=== PATIENT | female | born 1970 | race Caucasian/White ===

== ENCOUNTER 2020-05-07 05:42 | Emergency (ER) | payer BC, SELFPAY ==
--- NOTE | ~2020-05-07 | US_ITS ---
EXAMINATION: US venous doppler [facility] DATE: 05/07/2020 07:35 INDICATION: Lower limb pain. TECHNIQUE: Grayscale ultrasound images without and with compression and Doppler ultrasound images of the bilateral lower extremity veins were obtained. COMPARISON: None. FINDINGS: The visualized portions of right common femoral vein, profunda (deep) femoral vein, femoral vein, pop liteal vein, peroneal veins, posterior tibial veins, and greater saphenous vein outflow are patent. The visualized portions of left common femoral vein, profunda femoral vein, femoral vein, popliteal v ein, peroneal veins, posterior tibial veins, and greater saphenous vein outflow are patent. IMPRESSION: 1. No deep venous thrombosis. Reviewed, dictated and finalized at location A.
[2020-05-07 05:44] VITALS: BP 138/60; PULSE 73; RESP 20; TEMP 36.8; O2SAT 100
--- NOTE | 2020-05-07 06:38 | ED.LOWEXIN ---
HPI - Extremity Injury (Lower) General Chief Complaint: Extremity Injury, Lower <Cami Rosario MD - Last Filed: 05/07/20 19:04> Stated Complaint: LEG PAIN <Cami Rosario MD - Last Filed: 05/07/20 19:04> Time Seen by Provider: 05/07/20 06:31 <Cami Rosario MD - Last Filed: 05/07/20 19:04> History of Present Illness HPI Narrative: Patient presents with 2 days of posterior calf pain. 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 She had no injury. She had no new exercise or activity. Pain started in the left leg and then went to the right leg. She gauges both as 8 out of 10. Pain is worse with walking. She took an ibuprofen for the pain at home. She has no history of blood clots or any in her family. She smokes cigarettes, but is not on control. She has not been sick otherwise. History of tubal ligation. <Cami Rosario MD - Last Filed: 05/07/20 19:04> Related Data Allergies/Adverse Reactions: Allergies Allergy/AdvReac Type Severity Reaction Status Date / Time No Known Allergies Allergy Mild Unverified 04/10/12 16:26 <Cami Rosario MD - Last Filed: 05/07/20 19:04> Review of Systems Review of Systems: Narrative: CONSTITUTIONAL: Denies fever, chills, or sweats. EYES: Denies visual changes, redness, or discharge. ENT: Denies rhinorrhea, congestion, sore throat, or otalgia. CARDIOVASCULAR: Denies chest pain, palpitations, or edema. RESPIRATORY: Denies cough or dyspnea. GASTROINTESTINAL: Denies abdominal pain, nausea, vomiting, or diarrhea. GENITOURINARY: Denies dysuria or hematuria. SKIN: Denies rash or itching. MUSCULOSKELETAL: Denies back pain, joint pain, bilateral lower leg myalgia. NEUROLOGIC: Denies headache, numbness, or weakness. PSYCHIATRIC: Denies anxiety or depression. <Cami Rosario MD - Last Filed: 05/07/20 19:04> [facility] Social History Social History: Social History (Updated 05/07/20 @ 06:40 by Cami Rosario MD) Smoking status: Current every day smoker Gender identity (if verbalized by the patient): Female <Cami Rosario MD - Last Filed: 05/07/20 19:04> Exam Narrative: Exam Narrative: GENERAL: Well-appearing, well-nourished, and in no acute distress. Overweight. HEAD: Normocephalic, atraumatic. EYES: PERRLA and EOMI. ENT: Nares clear, no rhinorrhea or epistaxis. Mucous membranes moist. NECK: Supple. CHEST: Clear to auscultation. No respiratory distress. HEART: Regular rate and rhythm. No murmur heard. Normal peripheral pulses. ABDOMEN: Soft, nontender, nondistended, normal active bowel sounds. EXTREMITIES: Normal range of motion. No edema. Tender to the posterior calf on the right. No cords present. SKIN: Warm, dry, no rash. NEURO: No focal deficits. Alert and oriented x3. PSYCH: Animated and irritated. <Cami Rosario MD - Last Filed: 05/07/20 19:04> Course Course Emergency Course: Patient informed of results. On my evaluation patient does have tenderness over the mid/lower calf bilaterally. Achilles tendon intact. No palpable cords or evidence of trauma. With my palpation patient seems to have significant tenderness however if she begins to rub her own calf she is much more tolerant of the pain than when I use light touch. Will give a dose of Toradol and discharged home with recommendations of anti-inflammatory medication, muscle relaxers, rice therapy, and close follow-up with PCP. <Joseph Rhoades MD - Last Filed: 05/07/20 08:24> Vital Signs Vital signs: Vital Signs Temperature 98.3 F 05/07/20 05:44 Pulse Rate 73 05/07/20 05:44 Respiratory Rate 20 05/07/20 05:44 Blood Pressure 138/60 05/07/20 05:44 Pulse Oximetry 100 05/07/20 05:44 Temperature 98.3 F 05/07/20 05:44 Pulse Rate 85 05/07/20 08:17 Respiratory Rate 20 05/07/20 08:17 Blood Pressure 148/62 H 05/07/20 08:17 Pulse Oximetry 99 05/07/20 08:17 <Cami Rosario MD - Last Filed: 05/07/20 19:04>
[2020-05-07 07:06] LABS: Basophils Absolute Auto 0.1 K/mm3 (0.0-0.1); Basophils Percent Auto 1.3 % (0.2-1.2); Eosinophils Absolute Auto 0.8 K/mm3 (0-0.3); Eosinophils Percent Auto 8.1 % (0-4.4); Hematocrit 41.3 % (37.0-47.0); Hemoglobin 14.2 g/dL (12.0-15.0); Immature Granulocyte Absolute 0.03 K/mm3 (0.00-0.031); Immature Granulocyte Percent A 0.3 % (0-0.5); Lymphocytes Absolute Auto 2.97 K/mm3 (0.9-3.2); Lymphocytes Percent Auto 30.2 % (18.3-44.2); Mean Corpuscular HGB Conc 34.4 g/dl (32-36); Mean Corpuscular Hemoglobin 31.6 pg (26-34); Mean Platelet Volume 10.1 fl (7.4-10.4); Monocytes Absolute Auto 0.8 K/mm3 (0.1-0.6); Monocytes Percent Auto 7.8 % (2.6-8.5); Neutrophils Absolute Auto 5.1 K/mm3 (1.3-6.7); Neutrophils Percent Auto 52.3 % (45.5-73.1); Platelet Count Result 278 k/mm3 (150-375); Red Blood Count 4.49 M/mm3 (4.2-5.4); Red Cell Distribution Width 12.3 % (11.5-14.5); White Blood Count 9.8 K/mm3 (4.5-10.0)
[2020-05-07 07:15] LABS: Prothrombin Time 12.6 Seconds (11.1-14.7)
[2020-05-07 07:18] LABS: Alanine Aminotransferase 29 U/L (4-35); Albumin Level 4.3 g/dL (3.5-5.1); Alkaline Phosphatase 104 U/L (38-126); Aspartate Amino Transferase 25 U/L (14-36); Bilirubin,Total 0.5 mg/dL (0.2-1.3); Blood Urea Nitrogen 14 mg/dL (7-17); Calcium 9.1 mg/dL (8.4-10.2); Carbon Dioxide 25 mmol/L (22-30); Chloride 106 mmol/L (98-107); D Dimer 0.33 ug/mL (<0.48); Estimated CRCL calculation 96 ml/min; Estimated Glomerular Filt Rate > 60; Glucose 155 mg/dL (65-105); Potassium 4.2 mmol/L (3.4-5.0); Sodium 137 mmol/L (137-145)
[2020-05-07] MEDS: IBUPROFEN 600 MG TABLET PO (07:20)
[2020-05-07 08:17] VITALS: BP 148/62; PULSE 85; RESP 20; O2SAT 99
[2020-05-07] MEDS: KETOROLAC 30 MG/ML VIAL (*BKC) IV PUSH (08:17)
== END 2020-05-07 08:37 | disposition home or self-care (01) ==
PROVIDERS: Emergency Provider Emergency Medicine
DX: M79.662 Pain in left lower leg (principal); M79.604 Pain in right leg; S86.819A Strain of other muscle(s) and tendon(s) at lower leg level, unspecified leg, initial encounter; F17.210 Nicotine dependence, cigarettes, uncomplicated; X58.XXXA Exposure to other specified factors, initial encounter
CPT/HCPCS: 36415; 80053; 85025; 85380; 85610; 93970; 96374; 99284; A9270; J1885

== ENCOUNTER 2020-06-24 20:01 | Inpatient (IN) | payer BC, SELFPAY ==
[2020-06-24] VITALS (19 sets, daily range): BP systolic 103–127; BP diastolic 67–109; PULSE 58–79; RESP 7–24; TEMP 37–37.2; O2SAT 95–100; BMI 38.6
--- NOTE | ~2020-06-24 | XR_ITS ---
EXAMINATION: XR chest 1V portable 06/24/2020 20:50 INDICATION: Chest pain, shortness of breath and fatigue PROCEDURE: AP portable chest COMPARISON: No prior studies for comparison. FINDINGS: The lungs are clear. The cardiomediastinal silhouette is within normal limits. There are no pleural effusions. There is no pneumothorax suspected. IMPRESSION: 1: NO ACUTE CARDIOPULMONARY DISEASE. Reviewed, dictated and finalized at location A.
--- NOTE | 2020-06-24 20:09 | ECG_ITS ---
Measurements Intervals [place] Rate: 51 P: 42 [place]: 160 QRS: 10 QRSD: 88 T: 22 QT: 413 QTc: 383 Interpretive Statements SINUS BRADYCARDIA EXTENSIVE ANTERIOR ST ELEVATION MYOCARDIAL INJURY- ACUTE HIGH LATERAL ST ELEVATION MYOCARDIAL INFARCT- ACUTE ABNORMAL ECG Electronically Signed On 06-25-2020 7:25:51 CDT by Derrell Nelson D.O.
[2020-06-24 20:33] LABS: Basophils Absolute Auto 0.2 K/mm3 (0.0-0.1); Basophils Percent Auto 1.1 % (0.2-1.2); Eosinophils Absolute Auto 0.4 K/mm3 (0-0.3); Eosinophils Percent Auto 3.1 % (0-4.4); Hematocrit 39.7 % (37.0-47.0); Hemoglobin 13.7 g/dL (12.0-15.0); Immature Granulocyte Absolute 0.03 K/mm3 (0.00-0.031); Immature Granulocyte Percent A 0.2 % (0-0.5); Lymphocytes Absolute Auto 6.43 K/mm3 (0.9-3.2); Mean Corpuscular HGB Conc 34.5 g/dl (32-36); Mean Corpuscular Hemoglobin 31.1 pg (26-34); Mean Platelet Volume 10.7 fl (7.4-10.4); Monocytes Absolute Auto 1.1 K/mm3 (0.1-0.6); Monocytes Percent Auto 7.7 % (2.6-8.5); Neutrophils Absolute Auto 5.9 K/mm3 (1.3-6.7); Neutrophils Percent Auto 41.9 % (45.5-73.1); Platelet Count Result 358 k/mm3 (150-375); Red Blood Count 4.41 M/mm3 (4.2-5.4); Red Cell Distribution Width 12.1 % (11.5-14.5)
[2020-06-24] MEDS: ASPIRIN 81 MG CHEWABLE TABLET 324 MG PO (20:37)
[2020-06-24] MEDS: SODIUM CHLORIDE 0.9% IV 1,000 ML 999 ML IV CONT (20:41)
[2020-06-24 20:44] LABS: INR 0.9; Prothrombin Time 12.2 Seconds (11.1-14.7)
[2020-06-24 20:45] LABS: Partial Thromboplastin Time 25.9 SECONDS (22.3-36.8)
[2020-06-24 20:48] LABS: Anion Gap 8 mmol/L (8-16); Blood Urea Nitrogen 18 mg/dL (7-17); Calcium 9.1 mg/dL (8.4-10.2); Carbon Dioxide 25 mmol/L (22-30); Chloride 106 mmol/L (98-107); Estimated CRCL calculation 96 ml/min; Estimated Glomerular Filt Rate > 60; Glucose 158 mg/dL (65-105); Potassium 3.5 mmol/L (3.4-5.0); Sodium 139 mmol/L (137-145)
--- NOTE | 2020-06-24 20:50 | ED.CHESTPAIN ---
HPI - Chest Pain General Chief Complaint: Chest Pain Stated Complaint: chest pain Time Seen by Provider: 06/24/20 20:23 Source: patient Mode of arrival: ambulatory Limitations: no limitations History of Present Illness HPI narrative: This patient is a 50 year old female who presents for evaluation of midsternal chest pain. This pain started 30 minutes ago. She states she just got out of the shower and she developed chest pain. She reports pain that radiates to both arms and she has associated sob. She denies nausea, vomiting, dizziness. She denies history of heart disease. Her pain is 6/10. complaint: chest heaviness Onset (ago): minute(s) (30) Timing of current episode: constant Onset: during rest Pain radiation: left arm Relieving factors: nothing Exacerbating factors: nothing Related Data Home Medications Medication Instructions Recorded Confirmed ibuprofen 400 mg PO TID 06/24/20 06/24/20 Allergies Allergy/AdvReac Type Severity Reaction Status Date / Time No Known Allergies Allergy Mild Unverified 04/10/12 16:26 Review of Systems Review of Systems: All systems reviewed & are unremarkable except as noted in HPI and below Constitutional: Constitutional: Denies chills and Denies fever(s) Cardiovascular: Cardiovascular: Reports chest pain and Reports radiating jaw, neck or arm pain Respiratory: Respiratory: Denies cough, Reports dyspnea and Denies wheezing Gastrointestinal: Gastrointestinal: Denies abdominal pain, Denies nausea and Denies vomiting Neurologic: Denies focal weakness and Reports numbness PMFSH Past Medical History Medical History Asthma Surgical History Surgical History No pertinent past surgical history Family History Family History (Updated 06/24/20 @ 23:28 by Jessica Lacey RN) Mother Cerebrovascular accident Hypertension Father Congestive heart failure Diabetes mellitus Hypertension Social History Social History Smoking packs per day: 1 Smoking cigarettes per day: 20.0 Smoking status: Current every day smoker Tobacco type: cigarettes Second hand tobacco smoke exposure: Yes Smoking end date: 06/24/20 Alcohol intake: never Substance use: never Gender identity (if verbalized by the patient): Female Spiritual care concerns: No Exam Const: General: alert; No diaphoretic Orientation/consciousness: patient oriented x3 Other: patient appears comfortable in bed Eyes: EOM: EOMs intact bilaterally Resp: Effort & Inspection: normal respiratory effort and no retractions Auscultation: clear to auscultation bilaterally Cardio: Rate: regular rate Rhythm: regular rhythm Heart sounds: no murmurs Other: equal pulses to all extremities Back/Spine/Pelvis: Back: no CVA tenderness Skin: General skin exam: normal color Rashes: no rashes Neuro: General: patient oriented x3, moves all extremities and CN's II-XI intact bilaterally Extrem: General: no pedal edema Course Course Emergency Course: PAtient presented with chest pain. She was given aspirin 324 mg with heparin 4000 Units. She also reports nitro glycerin SL Consultations Consultation #1: I spoke with Dr. Shipley on the phone . He is aware of STEMI and okay with giving aspirin and heparin Date: 06/24/20 Time: 20:26 Vital Signs Vital signs: Vital Signs Temperature 98.9 F 06/24/20 20:14 Pulse Rate 58 L 06/24/20 20:14 Respiratory Rate 18 06/24/20 20:14 Blood Pressure 103/78 06/24/20 20:14 Pulse Oximetry 100 06/24/20 20:14 Temperature 98.0 F 06/25/20 03:45 Pulse Rate 68 06/25/20 06:13 Respiratory Rate 18 06/25/20 06:13 Blood Pressure 109/80 06/25/20 06:13 Pulse Oximetry 97 06/25/20 06:13 MDM - Chest Pain Lab Data Attestation: I reviewed the patient's lab results. Result
[2020-06-24 21:00] LABS: Troponin I 0.051 ng/mL (0.000-0.034)
--- NOTE | 2020-06-24 21:08 | WPDMODSED ---
Moderate Sedation Note-Pt Data Patient Data Allergies Allergy/AdvReac Type Severity Reaction Status Date / Time No Known Allergies Allergy Mild Unverified 04/10/12 16:26 Home Medications Medication Instructions Recorded Confirmed Type ibuprofen 400 mg PO TID 06/24/20 History Current Medications: Active Medications Sodium Chloride (Normal Saline Iv) 1,000 mls @ 999 mls/hr IV CONT .Q1H1M STA Stop: 06/24/20 21:39 Last Admin: 06/24/20 20:41 Dose: 999 mls/hr Documented by: Sedation/Anesthesia: No previous sedation/anesthesia problems (including family history). [facility] Past Medical History Medical History Asthma Surgical History Surgical History No pertinent past surgical history Social History Social History Smoking packs per day: 1 Smoking cigarettes per day: 20.0 Smoking status: Current every day smoker Gender identity (if verbalized by the patient): Female Mod Sed Physical Exam Physical Exam Pre Procedural Exam: Normal: Appearance, Eyes, Ears, Nose, Neck, Throat, Airway, Lungs, Heart Size, Heart Rate, Heart Rhythm, Neuro Exam, Abdomen, Liver, Kidneys, Spleen, Breasts, Genitalia, Extremities and Skin Hours since solid foods: 8 Hours since liquid intake: 8 Internal Medicine - PN: Obj Da Vital Signs Vital Signs: Vital Signs - 24 hr 06/24/20 20:14 06/24/20 20:30 06/24/20 20:45 Temperature 37.2 C Pulse Rate 58 L 69 69 Respiratory Rate 18 18 18 Blood Pressure 103/78 127/109 H 120/79 Pulse Oximetry 100 100 99 Meds/Results Medications: Active Medications Generic Name Dose Route Start Last Admin Trade Name Freq PRN Reason Stop Dose Admin Sodium Chloride 1,000 mls @ 999 mls/hr 06/24/20 20:39 06/24/20 20:41 Normal Saline Iv IV CONT 06/24/20 21:39 999 mls/hr .Q1H1M STA Administration Radiology Results: ITS Impressions Chest X-Ray 06/24/20 21:01 IMPRESSION: 1: NO ACUTE CARDIOPULMONARY DISEASE. Labs CBC & Chem 7: 08/28/20 20:21 06/24/20 20:21 Labs: Laboratory Results - last 24 hr 06/24/20 06/24/20 06/24/20 20:21 20:21 20:21 WBC 14.0 H RBC 4.41 Hgb 13.7 Hct 39.7 MCV 90.0 MCH 31.1 MCHC 34.5 RDW 12.1 Plt Count 358 MPV 10.7 H Immature Gran % (Auto) 0.2 Neut % (Auto) 41.9 L Lymph % (Auto) 46.0 H Daggett % (Auto) 7.7 Eos % (Auto) 3.1 Baso % (Auto) 1.1 Lymph # (Auto) 6.43 H [place] # (Auto) 1.1 H Eos # (Auto) 0.4 H Baso # (Auto) 0.2 H Abs Immat Gran (auto) 0.03 Absolute Neuts (auto) 5.9 Absolute Nucleated RBC 0.0 Nucleated RBC % 0.0 PT 12.2 INR 0.9 APTT 25.9 Sodium 139 Potassium 3.5 Chloride 106 Carbon Dioxide 25 Anion Gap 8 BUN 18 H Creatinine 0.80 Estim Creat Clear Calc 96 Estimated GFR > 60 Glucose 158 H Calcium 9.1 Troponin I 0.051 H* ASA Classification/Sedation ASA Classification/Sedation ASA Class: I Emergent: No Risks: Risks, benefits and alternatives explained and patient/family accepted plan for sedation. Patient re-evaluated immediately prior to sedation.
--- NOTE | 2020-06-24 21:09 | WPDCARDPROC ---
Cardiac Cath Procedure Note Date of procedure:: 06/24/20 Performing physician:: Perry Shipley MD date of service 06/24/2020. Indication:: Anterior STEMI Brief clinical history:: this is 50-year-old female with past medical history of obesity, osteoarthritis and chronic tobacco user who started about half an hour before presenting to the hospital complaining of central chest pain radiating to the left arm and to the back associated with shortness of breath. The pain was very severe. She was using ibuprofen frequently lately for osteoarthritis. denies lower limb edema, dizziness, syncope, fever, chills, nausea and vomiting. EKG shows anterolateral ST elevation myocardial infarction with ST depression in leads 3 and AVF. Procedure Procedure performed:: 1-Moderate sedation that started at 2122 pm and ended at 2200 using 2 mg of Versed and 75mcg fentanyl. The registered nurse was Luna Mai. 2-Selective left and right coronary angiogram. 3-Left heart catheterization with measurement of LVEDP and measurement of gradient across aortic valve. 4- deployment of drug-eluting stent 3 x 33 covering midportion the LAD. deployment under normal pressure for 23 seconds. 4-Right common femoral arterial angiogram. 5-Deployment of 6 [place] Angio-Seal. Sedation/Medication given:: Moderate sedation. Access site:: Right common femoral artery. Estimated blood loss:: 10cc Procedure note:: After informed consent patient was brought in to analytical lab technician with the was draped and prepped in usual manner. Moderate sedation was given and the right groin was infiltrated using 1% lidocaine. six [place] sheath was obtained using micropuncture needle and the modified Seldinger technique. Selective right coronary angiogram was done using JR4 catheter with the tip of the catheter placed to the right coronary artery. subsequently the left main coronary artery was engaged using 6 [place] guide catheter CLS 3.5. selective left coronary angiogram was done and then coronary Luge wire was advanced to distal LAD. balloon angioplasty of mid LAD was done using 3 x 15 balloon with 2 inflations each under nominal pressure for 20 seconds. then after valve deployment of a drug-eluting stent Xience 3 x 33 under nominal pressure for 23 seconds. After that 5 [place] pigtail catheter was advanced across the aortic valve into the left ventricle with measurement of LVEDP and measurement of gradient across aortic valve. LV angiogram was done. Right common femoral arterial angiogram was done. Findings:: 1- left coronary artery is a large artery that divides into large LAD, large circumflex artery. Left main with minimal irregularities. 2- left anterior descending artery is a large artery that runs and wraps around the apex. it was totally occluded in the mid segment. at the occlusion site there is a medium-sized diagonal branch that has ostial 50%. BRITTNEY flow before intervention was 0 and 3 after intervention 3- leftcircumflex artery is a large artery and has proximal 30%. There is of the vessel has minimal irregularities. Proximally large OM1 branch with minimal irregularities. 4- right coronary artery is large artery and dominant. Proximal 70% and distal 70%. 5- LVEDP was 25 mmhg and no gradient across aortic valve. 6- LV angiogram shows normal LV systolic function with estimated ejection fraction 65%. No significant wall motion abnormality appreciated. 6- opening arterial pressure was 90/70 and and closing pressure was 120/80. 7- right femoral artery angiogram shows no significant disease in the right common femoral artery. Conclusion:: 1- totally occluded mid LAD status post stenting as described above. 2- high-grade stenosis proximal and distal RCA. 3- normal LV systolic function. Assessment and Plan Additional Plan 1- continue aspirin and Brilinta. 2- tobacco cessation. 3- staged intervention on the proximal and distal RCA in a couple weeks from now.
--- NOTE | 2020-06-24 21:12 | PM.IMHP ---
H&P: HPI History of Present Illness Date/Time: date of service 06/24/20 21:12 chief complaint chest pain Chief complaint: STEMI Narrative: Maggy Ojeda is a 50 year old female with past medical history of obesity, osteoarthritis and chronic tobacco user who started about half an hour before presenting to the hospital complaining of central chest pain radiating to the left arm and to the back associated with shortness of breath. The pain was very severe. She was using ibuprofen frequently lately for osteoarthritis. denies lower limb edema, dizziness, syncope, fever, chills, nausea and vomiting. EKG shows anterolateral ST elevation myocardial infarction with ST depression in leads 3 and AVF. family history: denies CAD. mom has atrial fibrillation Review of Systems Review of Systems: All systems reviewed & are unremarkable except as noted in HPI and below Constitutional: Constitutional: Denies chills, Denies fatigue, Denies fever(s), Denies headache(s) and Denies snoring Eyes: Eyes: Denies eye discharge and Denies loss of vision ENT: Denies dizziness, Denies headache(s), Denies nasal discharge and Denies sore throat Cardiovascular: Cardiovascular: Reports as per HPI, Reports chest pain, Denies syncope, Denies rapid heart rate, Denies leg edema, Reports dyspnea, Reports dyspnea on exertion, Denies orthopnea and Denies paroxysmal nocturnal dyspnea Respiratory: Respiratory: Denies chest congestion, Denies cough, Reports dyspnea, Reports dyspnea on exertion, Denies snoring and Denies wheezing Gastrointestinal: Gastrointestinal: Denies abdominal pain, Denies diarrhea, Denies nausea and Denies vomiting Genitourinary: Genitourinary: Denies hematuria, Denies urinary frequency, Denies dysuria and Denies flank pain Musculoskeletal: Musculoskeletal: Denies myalgias, Denies arthralgias and Denies joint swelling Neurologic: Denies Abnormal speech present, Denies dizziness, Denies syncope, Denies headache(s), Denies focal weakness and Denies loss of vision Psychiatric: Psychiatric: Denies anxiety and Denies depression Endocrine: Endocrine: Denies cold intolerance, Denies fatigue and Denies heat intolerance Hematologic/Lymphatic: Hematologic/Lymphatic: Denies easy bleeding and Denies easy bruising Allergic/Immunologic: Allergic/Immunologic: Denies urticaria and Denies wheezing PMFSH Past Medical History Medical History Asthma Surgical History Surgical History No pertinent past surgical history Social History Social History Smoking packs per day: 1 Smoking cigarettes per day: 20.0 Smoking status: Current every day smoker Gender identity (if verbalized by the patient): Female Meds Home Medications and Allergies Home Medications Medication Instructions Recorded Confirmed Type ibuprofen 400 mg PO TID 06/24/20 History Allergies Allergy/AdvReac Type Severity Reaction Status Date / Time No Known Allergies Allergy Mild Unverified 04/10/12 16:26 Vital Signs Vital Signs - 24 hr 06/24/20 20:14 06/24/20 20:30 06/24/20 20:45 Temperature 37.2 C Pulse Rate 58 L 69 69 Respiratory Rate 18 18 18 Blood Pressure 103/78 127/109 H 120/79 Pulse Oximetry 100 100 99 Exam Const: General: cooperative, healthy appearing, comfortable, no acute distress and well developed Nutritional Appearance: well nourished Orientation/consciousness: patient oriented x3 HENMT: Head: normal to inspection, normocephalic and atraumatic Ears: hearing grossly normal bilaterally and external ears normal General nose exam: Normal external nose present and Normal nares present Face and sinus: normal facial exam and no erythema Mouth: Yes moist mucous membranes and No lip abnormal Throat: uvula midline Eyes: General: appearance normal, both eyes and all related structure
--- NOTE | 2020-06-24 21:13 | PC.NURSE ---
senior label specialist team here-report given
--- NOTE | 2020-06-24 22:18 | ECG_ITS ---
Measurements Intervals [place] Rate: 72 P: 55 [place]: 161 QRS: 81 QRSD: 90 T: 61 QT: 385 QTc: 423 Interpretive Statements SINUS RHYTHM LOW VOLTAGE- LIMB LEADS ANTEROLATERAL ST ELEVATION MYOCARDIAL INFARCT- PROBABLY RECENT BASELINE ARTIFACT- V4, V6 ABNORMAL ECG Electronically Signed On 06-25-2020 7:35:28 CDT by Derrell Nelson D.O.
[2020-06-24] MEDS: NICOTINE (*PBKC) 21 MG PATCH 1 PATCH TRANSDERM (23:09)
[2020-06-24 23:33] LABS: Troponin I > 80.000 ng/mL (0.000-0.034)
--- NOTE | 2020-06-24 23:49 | ADMIMU ---
This patient, Maggy Ojeda, was admitted to ICU status, and placed in Intensive Care Unit-6 [facility] 06/24/202219. Patient/family oriented to hospital policies and general routines including ID bracelet, bed and alarms, visiting hours, pain management, procedures, bathroom and other care routines, personal items, smoking policy, room service/diet, and visiting hours. Valuables list has been completed. Information on how to activate the Rapid Response Team has been discussed. Patient/Family are encouraged to report perceived risks to care and to ask questions if they do not understand what they are told or what they should do.
[2020-06-25] VITALS (51 sets, daily range): BP systolic 88–131; BP diastolic 46–102; PULSE 55–83; RESP 15–35; TEMP 36.4–37.1; O2SAT 96–100
[2020-06-25] MEDS: traMADol HCL 50 MG TABLET PO ×2 (01:17→05:03)
[2020-06-25 04:58] LABS: Anion Gap 5 mmol/L (8-16); Blood Urea Nitrogen 14 mg/dL (7-17); Calcium 8.6 mg/dL (8.4-10.2); Carbon Dioxide 23 mmol/L (22-30); Chloride 108 mmol/L (98-107); Cholesterol 225 mg/dL (0-200); Estimated CRCL calculation 128 ml/min; Estimated Glomerular Filt Rate > 60; Glucose 150 mg/dL (65-105); HDL Direct 32 mg/dL; Sodium 136 mmol/L (137-145); Triglycerides 177 mg/dL (<150)
[2020-06-25 05:09] LABS: LDL Cholesterol Direct 165 mg/dL
[2020-06-25] MEDS: NEOMYCIN/POLYMYXIN/BACITRACIN OINTMENT PACKET 1 PACKET (06:07)
[2020-06-25 06:49] LABS: Hemoglobin A1C 6.7 % (<5.7)
[2020-06-25] MEDS: NICOTINE (*PBKC) 21 MG PATCH 1 PATCH TRANSDERM (08:27)
[2020-06-25] MEDS: ASPIRIN 81 MG CHEWABLE TABLET BY MOUTH (08:29)
[2020-06-25] MEDS: TICAGRELOR 90 MG TABLET BY MOUTH ×2 (08:29→17:19)
[2020-06-25] MEDS: ATORVASTATIN 40 MG TABLET BY MOUTH (08:29)
[2020-06-25] MEDS: MAG HYDROX/AL HYDROX/SIMETH 30 ML UDC PO (08:32)
--- NOTE | 2020-06-25 09:22 | WPDCNINT ---
Assessment and Plan Assessment and plan (1) STEMI (ST elevation myocardial infarction): Code(s): I21.3 - ST elevation (STEMI) myocardial infarction of unspecified site Status: Acute Assessment and Plan: patient presented with chest pain, found to have anterolateral ST-elevation GA with ST depression in lead 3 and AVF. - Status post PTCA/PCI with THUY x1 to LAD, EF 65% .- Patient has proximal and distal RCA lesions which will need to have staged intervention in a couple of weeks per Cardiology - cardiology following the patient closely - continue Brilinta, aspirin, atorvastatin (2) Hypercholesteremia: Code(s): E78.00 - Pure hypercholesterolemia, unspecified Status: Acute Assessment and Plan: continue statin (3) Tobacco abuse: Code(s): Z72.0 - Tobacco use Status: Acute Assessment and Plan: patient with tobacco use, nicotine patch in place - counseled patient on cessation of smoking to which she says she is going to quit smoking and start level healthy lifestyle (4) Abnormal glucose: Code(s): R73.09 - Other abnormal glucose Status: Acute Assessment and Plan: abnormal glucose - patient states she was told by her physician that she may be borderline diabetic - hemoglobin A1c 6.7 this admission - patient states she is going to make changes to her diet, lifestyle start exercising (5) Obesity (BMI 30-39.9): Code(s): E66.9 - Obesity, unspecified Status: Acute Assessment and Plan: receptive to lifestyle changes and changing her diet Additional Plan discussed with patient and updated her with her condition and plan of care. She is aware that cardiology will be following her code status: Full code critical care time spent: 41 minutes Due to a high probability of clinically significant, life threatening deterioration, the patient required my highest level of preparedness to intervene emergently and I personally spent this critical care time directly and personally managing the patient. This critical care time included obtaining a history; examining the patient; pulse oximetry; ordering and review of studies; arranging urgent treatment with development of a management plan; evaluation of patient's response to treatment; frequent reassessment; and discussions with other providers. It was exclusive of separately billable procedures and treating other patients and teaching time. Please see Assessment and Plan section and the rest of the note for further information on patient assessment and treatment Core Rescuer Consult Note Consult date: 06/25/20 Time Seen: 06:54 Reason for consult: ST-elevation GA status post PTCA / PCI with THUY x1 to LAD, EF 65%, RCA with proximal 70% and distal 70% occlusion HPI: Maggy Ojeda is a 50 year old female with past medical history of obesity, tobacco use, osteoarthritis, hypercholesterolemia, borderline diabetes presented to the ED on 06/24/2020 with complains of chest pain started about 30 minutes prior to arrival in the ED. Substernal chest pain associated with shortness of breath 1 nausea. Patient also complained of left arm and back pain associated with the chest pain. EKG showed showed anterolateral ST-elevation, ST depression in leads 3 and AVF. Patient was taken to the cardiac oil field laborer where she was found to have 100% occlusion of LAD status post PTCA/ PCI with THUY x1 to the LAD. EF was 65%. RCA with proximal 70% and distal 70% occlusion which will require staged intervention in a couple weeks per Cardiology. Patient was transferred to the ICU for further management. Patient seen examined this morning in the ICU, is awake, alert, oriented x3, pleasant personality. denies any chest pain complains of back pain secondary to laying in bed. Patient any shortness of breath, nausea, vomiting, abdominal pain, dizziness, lightheadedness. Gold patient's of arrhythmias overnight on telemetry. [employer]odynamica
--- NOTE | 2020-06-25 11:48 | PM.PNCARD ---
Progress Note: A&P Assessment and Plan (1) STEMI (ST elevation myocardial infarction): Code(s): I21.3 - ST elevation (STEMI) myocardial infarction of unspecified site Status: Acute Assessment and Plan: Anterior STEMI, Early presentation, status post THUY to the occluded mid Left anterior descending. Normal LV function. No significant arrhythmias. Doing well. Add ANSHU-inhibitor and beta-pako Continue aspirin Brilinta and high-dose statin Transfer to [facility]. PRob DC Saturday. Follow-up with Dr. Shipley and a couple weeks for elective intervention of the right coronary artery. (2) Tobacco abuse: Code(s): Z72.0 - Tobacco use Status: Acute Assessment and Plan: tobacco cessation strongly advised. (3) Hypercholesteremia: Code(s): E78.00 - Pure hypercholesterolemia, unspecified Status: Acute Assessment and Plan: Very high LDL cholesterol, started on atorvastatin 40 mg daily. (4) Abnormal glucose: Code(s): R73.09 - Other abnormal glucose Status: Acute Assessment and Plan: Elevated blood sugars, A1c 6.7,has been told she may develop diabetes. Reviewed; advised attention to diet, FU w/ PMD. Consult hospitalists for eval of new DM Subjective Date/time seen: 06/25/20 11:48 Follow-up for CAD and anterior STEMI 06/24/2020 with early presentation. The patient was taken emergently to the clinical lab technologist by and had a THUY to the occluded mid Left anterior descending. She has residual RCA disease which will be addressed in a couple weeks with an elective PCI. EF was normal. History of smoking , 1 pack per day. Date of service: 06/25/2020 Patient is doing very well, mild residual soreness of her chest but no pain or shortness of breath. Telemetry shows rare PVCs and 1 ventricular triplet. She has told her daughter to throw away all of her cigarettes and decided she would quit smoking and improve her lifestyle. Finds a nicotine patches are helpful. RN reports patient is doing well also. Review of Systems Constitutional: Constitutional: Reports no additional constitutional complaints ENT: Denies epistaxis Cardiovascular: Cardiovascular: Denies chest pain, Denies diaphoresis, Denies pedal edema, Denies lightheadedness and Denies palpitations Respiratory: Respiratory: Denies dyspnea Gastrointestinal: Gastrointestinal: Denies abdominal pain and Denies hematochezia Genitourinary: Genitourinary: Denies hematuria Musculoskeletal: Musculoskeletal: Reports no additional musculoskeletal complaints Comments: Some soreness of catheterization site Neurologic: Denies confusion Psychiatric: Psychiatric: Reports no additional psychiatric complaints Exam Const: General: comfortable and no acute distress HENMT: General nose exam: no epistaxis Eyes: EOM: EOMs intact bilaterally Neck: Neck: supple Resp: Effort & Inspection: normal respiratory effort Auscultation: clear to auscultation bilaterally Cardio: Rate: regular rate Rhythm: regular rhythm Heart sounds: no murmurs GI: Inspection: non-distended Skin: General skin exam: no rashes or lesions noted Other: cardiac catheterization site is free of ecchymosis, no hematoma, dressing is clean and dry. Distal pulses are intact. Neuro: Speech: normal speech Motor exam (neuro): Normal motor muscle tone present throughout Extrem: General: no edema and no pedal edema Psych: Mental Status: mental status grossly normal Affect: normal affect Objective Data Vital Signs Vital Signs: Vital Signs - 24 hr 06/24/20 20:14 06/24/20 20:30 06/24/20 20:45 Temperature 98.9 F Pulse Rate 58 L 69 69 Pulse Rate [Right Pedal (Dorsalis Pedis)] Respiratory Rate 18 18 18 Blood Pressure 103/78 127/109 H 120/79
[2020-06-25] MEDS: lisinopriL 5 MG TABLET PO (14:57)
[2020-06-25] MEDS: ACETAMINOPHEN 325 MG TABLET 650 MG PO (17:22)
[2020-06-25] MEDS: METOPROLOL TARTRATE 25 MG TABLET PO (20:32)
--- NOTE | 2020-06-25 22:22 | PM.IMCN ---
Assessment and Plan Assessment and plan (1) STEMI (ST elevation myocardial infarction): Code(s): I21.3 - ST elevation (STEMI) myocardial infarction of unspecified site Status: Acute Assessment and Plan: Continue Cardiology recommendations. (2) Diabetes mellitus: Qualifiers: Diabetes mellitus type: type 2 Diabetes mellitus snf insulin use: without snf use Diabetes mellitus complication status: without complication Qualified Code(s): E11.9 - Type 2 diabetes mellitus without complications Code(s): E11.9 - Type 2 diabetes mellitus without complications Status: Acute Assessment and Plan: New onset diabetes mellitus w/ HgbA1c >6.5%. Accuchecks, SSI Coverage, Hypoglycemic protocol. Continue metformin PO. (3) Hypercholesteremia: Code(s): E78.00 - Pure hypercholesterolemia, unspecified Status: Chronic Assessment and Plan: Continue atorvastatin. (4) Obesity (BMI 30-39.9): Code(s): E66.9 - Obesity, unspecified Status: Chronic Assessment and Plan: Healthy lifestyle changes were encouraged. Additional Plan Date of service was 06/25/2020 at 21:00 hrs. HPI Data of Consult Consult date: 06/26/20 Requesting Physician: Perry Shipley MD Primary Care Provider: PHARMACIST INTERN PHYSICIAN Consult Narrative Narrative: Thank you for consulting us to see this morbidly obese 50 year old female with known history of asthma and peripheral neuropathy who is a chronic smoker and suffered a STEMI yesterday s/p cardiac cath with 1 stent placed to her LAD. The patient relates that she has a history of being told that she was prediabetic and her HgbA1c came back at 6.7% today. She admits to me that she has put on weight recently and has not been watching her diet well. The patient states that she has quit smoking cigarettes and will concentrate on developing a healthy lifestyle. She has no other complaints at this time. Review of Systems Review of Systems: All systems reviewed & are unremarkable except as noted in HPI and below PMFSH Past Medical History Medical History (Updated 06/26/20 @ 01:41 by Lalo Gong MD) Asthma Surgical History Surgical History (Updated 06/26/20 @ 01:39 by Lalo Gong MD) No pertinent past surgical history Stented coronary artery Family History Family History Mother Cerebrovascular accident Hypertension Father Congestive heart failure Diabetes mellitus Hypertension Social History Social History Smoking packs per day: 1 Smoking cigarettes per day: 20.0 Smoking status: Current every day smoker Tobacco type: cigarettes Second hand tobacco smoke exposure: Yes Smoking end date: 06/24/20 Alcohol intake: never Substance use: never Gender identity (if verbalized by the patient): Female Spiritual care concerns: No Meds Home Medications and Allergies Home Medications Medication Instructions Recorded Confirmed Type ibuprofen 400 mg PO TID 06/24/20 06/24/20 History Allergies Allergy/AdvReac Type Severity Reaction Status Date / Time No Known Allergies Allergy Mild Unverified 04/10/12 16:26 Vital Signs Vital Signs - 24 hr 06/24/20 22:25 06/24/20 22:26 06/24/20 22:28 Temperature Pulse Rate 79 73 77 Pulse Rate [Right Pedal (Dorsalis Pedis)] Respiratory Rate 7 L 17 Blood Pressure 111/77 Pulse Oximetry 06/24/20 22:30 06/24/20 22:31 06/24/20 22:45 Temperature Pulse Rate 76 78 72 Pulse Rate [Right Pedal (Dorsalis Pedis)] 79 74 Respiratory Rate 21 H 15 13 Blood Pressure 116/67 116/67 114/67 Pulse Oximetry 06/24/20 22:46 06/24/20 23:00 06/24/20 23:01 Temperature Pulse Rate 72 73 73 Pulse Rate [Right Pedal (Dorsalis Pedis)] Respiratory Rate 11 L 24 H 24 H Blood Pressure 114/67 111/67 Pulse Oximetry 05/29
[2020-06-26] VITALS (8 sets, daily range): BP systolic 77–104; BP diastolic 40–69; PULSE 54–72; RESP 16–18; TEMP 36.4–36.6; O2SAT 98–100
[2020-06-26] MEDS: ACETAMINOPHEN 325 MG TABLET 650 MG PO ×2 (04:25→09:27)
[2020-06-26 08:53] LABS: Glucose Point of Care 139 (65-105)
[2020-06-26] MEDS: TICAGRELOR 90 MG TABLET BY MOUTH (09:27)
[2020-06-26] MEDS: NICOTINE (*PBKC) 21 MG PATCH 1 PATCH TRANSDERM (09:27)
[2020-06-26] MEDS: METOPROLOL TARTRATE 25 MG TABLET PO (09:28)
[2020-06-26] MEDS: ATORVASTATIN 40 MG TABLET BY MOUTH (09:28)
[2020-06-26] MEDS: ASPIRIN 81 MG CHEWABLE TABLET BY MOUTH (09:28)
--- NOTE | 2020-06-26 11:20 | PM.DS ---
DS: Admitting Diagnosis Admitting Diagnosis Admitting Diagnosis: STEMI DS: Discharge Diagnosis Discharge Diagnosis (1) STEMI (ST elevation myocardial infarction): Code(s): I21.3 - ST elevation (STEMI) myocardial infarction of unspecified site Status: Acute Assessment and Plan: Patient was admitted with an acute anerior STEMI and arrived early after her symptoms began. Dr. Shipley performed emergent cardiac catheterization and placed a Xience 3 x 33 mm drug-eluting stent in the occluded mid Left anterior descending. She has residual proximal and distal 70% stenosis of the large dominant right coronary artery which will be addressed in about 2 weeks with another PCI by Dr. Shipley. She had normal LV function at the time of cardiac catheterization. She had uneventful postprocedure course. She did have mildly low blood pressure so I reduced the dose of metoprolol. By discharge she was up and ambulating, feeling well. She had no significant arrhythmias, no recurrent pain and no CHF. Reviewed the role of all her medications, possible risks and side effects. Reviewed the need for dual anti-platelet therapy without fail; missing a dose could result in stent thrombosis and recurrent heart attack. Review diet, exercise, heart healthy lifestyle. (2) History of placement of stent in LAD coronary artery: Code(s): Z95.5 - Presence of coronary angioplasty implant and graft Status: Acute (3) Hypercholesteremia: Code(s): E78.00 - Pure hypercholesterolemia, unspecified Status: Chronic Assessment and Plan: Severely elevated cholesterol with a total cholesterol of 225, LDL 165, HDL 32 and triglycerides of 177. Started on atorvastatin 40 mg daily. Reviewed diet and exercise. (4) Tobacco abuse: Code(s): Z72.0 - Tobacco use Status: Acute Assessment and Plan: Patient was counseled regarding smoking cessation. The patient is determined that she will not resume smoking. She found that Nicoderm patches were helpful. (5) Diabetes mellitus: Qualifiers: Diabetes mellitus complication status: without complication Diabetes mellitus ferry terminal supervisor insulin use: without group home use Diabetes mellitus type: type 2 Qualified Code(s): E11.9 - Type 2 diabetes mellitus without complications Code(s): E11.9 - Type 2 diabetes mellitus without complications Status: Acute Assessment and Plan: Patient had been told in the past that she might develop prediabetes, and was found have elevated blood sugars on this admission running a in the 150s. A1c was 6.7. The hospitalists were consulted regarding new onset diabetes. Recommended metformin, healthy lifestyle. Patient does not have a primary care doctor at the moment but was given a list of primary care doctors for follow-up. DS: Summary Time Spent with Patient Time attestation: Total time spent providing and/or coordinating discharge services: 45 min. Exam Const: General: comfortable and no acute distress HENMT: Mouth: Yes moist mucous membranes Eyes: EOM: EOMs intact bilaterally Neck: Neck: supple Resp: Effort & Inspection: normal respiratory effort Auscultation: clear to auscultation bilaterally Cardio: Rate: regular rate Rhythm: regular rhythm Heart sounds: no murmurs GI: Inspection: non-distended GI Palp: Yes Soft to palpation and No Firmness to palpation present (GI) Skin: General skin exam: no rashes or lesions noted Neuro: Motor exam (neuro): Normal motor muscle tone present throughout Extrem: General: no pedal edema Psych: Mental Status: mental status grossly normal Affect: normal affect DS: Data Data Completed and Pending Labs on day of discharge: Labs from last 24 hours 06/26/20 08:15 POC Capillary Glucose 139 H Hematocr
--- NOTE | 2020-06-26 18:36 | PM.IMPN ---
Progress Note: A&P Assessment and Plan (1) STEMI (ST elevation myocardial infarction): Code(s): I21.3 - ST elevation (STEMI) myocardial infarction of unspecified site Status: Acute Assessment and Plan: Continue Cardiology recommendations. beta-pako, ANSHU-inhibitor, statin and anti-platelet therapy status post stenting of LAD and will return in 2 weeks with Cardiology for stenting of RCA (2) Diabetes mellitus: Qualifiers: Diabetes mellitus type: type 2 Diabetes mellitus assisted insulin use: without terminal press operator use Diabetes mellitus complication status: without complication Qualified Code(s): E11.9 - Type 2 diabetes mellitus without complications Code(s): E11.9 - Type 2 diabetes mellitus without complications Status: Acute Assessment and Plan: New onset diabetes mellitus w/ HgbA1c 6.7%. Continue metformin PO. 500 b.i.d. is outpatient she will follow-up with primary care for further intervention (3) Hypercholesteremia: Code(s): E78.00 - Pure hypercholesterolemia, unspecified Status: Chronic Assessment and Plan: Continue atorvastatin. (4) Obesity (BMI 30-39.9): Code(s): E66.9 - Obesity, unspecified Status: Chronic Assessment and Plan: Healthy lifestyle changes were encouraged. Subjective Date/time seen: 06/26/20 18:36 Interval history: date of visit 06/26. 50-year-old white female admitted with acute non ST elevation myocardial infarction. Noted to have elevated blood sugar with A1c is 6.7 and we were consult. She relates that her blood sugar has been elevated in the past and got under control with 40 lb weight loss but gained it back. She is motivated to control her sugar and live a healthier lifestyle. Exam Narrative: Exam Narrative: Blood pressure 104/70 pulse 62 saturating 98% on room air pupil equal reactive to light sclera anicteric mouth normal lungs clear CV regular rate rhythm no murmur abdomen is soft nontender extremities without edema good distal pulses neuro alert no focal deficits Objective Data Vital Signs Vital Signs: Vital Signs - 24 hr 06/25/20 20:00 06/25/20 20:30 06/25/20 20:32 Temperature 36.4 C L Pulse Rate 65 67 Respiratory Rate 16 Blood Pressure 97/46 L 122/76 Pulse Oximetry 99 06/25/20 22:00 06/26/20 00:00 06/26/20 02:00 Temperature 36.6 C Pulse Rate 63 65 58 L Respiratory Rate 16 Blood Pressure 89/59 L Pulse Oximetry 99 06/26/20 04:00 06/26/20 06:00 06/26/20 06:47 Temperature 36.6 C Pulse Rate 66 54 L Respiratory Rate 16 Blood Pressure 93/65 L 91/56 L Pulse Oximetry 100 06/26/20 08:00 06/26/20 09:28 06/26/20 10:00 Temperature 36.4 C Pulse Rate 72 65 63 Respiratory Rate 18 Blood Pressure 104/69 Pulse Oximetry 98 Intake/Output Intake/Output: Intake & Output 06/23/20 06/24/20 06/25/20 06/26/20 23:59 23:59 23:59 23:59 Intake Total 1880 1270 Output Total 3425 350 Balance -1545 920 Meds/Results Radiology Results: ITS Impressions Chest X-Ray 06/24/20 21:01 IMPRESSION: 1: NO ACUTE CARDIOPULMONARY DISEASE. Labs Labs: Laboratory Results - last 24 hr 06/26/20 08:15 POC Capillary Glucose 139 H
[2020-06-27 15:25] VITALS: BMI 37.8
== END 2020-06-26 12:35 | disposition home or self-care (01) | DRG 247 ==
LOC: ANHED 20:43 → ANHICU 20:53 → ANHIMU 06-26 11:20 → ANHICU 06-30 14:01 → ANHIMU 06-30 14:01
PROVIDERS: Emergency Medicine; Internal Medicine Cardiovascular Disease; Admitting Provider Internal Medicine Cardiovascular Disease; Emergency Provider General Practice; Visit Provider Internal Medicine Cardiovascular Disease
PROC: 4A023N7 Measurement of Cardiac Sampling and Pressure, Left Heart, Percutaneous Approach (ICD-10-PCS; CPT 93452; principal; 2020-06-24 21:05)
PROC: 027034Z Dilation of Coronary Artery, One Artery with Drug-eluting Intraluminal Device, Percutaneous Approach (ICD-10-PCS; 2020-06-24 21:05)
DX: I21.3 ST elevation (STEMI) myocardial infarction of unspecified site (principal); I25.10 Atherosclerotic heart disease of native coronary artery without angina pectoris; Z68.37 Body mass index [BMI] 37.0-37.9, adult; M19.90 Unspecified osteoarthritis, unspecified site; G62.9 Polyneuropathy, unspecified; E66.01 Morbid (severe) obesity due to excess calories; E78.00 Pure hypercholesterolemia, unspecified; F17.210 Nicotine dependence, cigarettes, uncomplicated; E11.9 Type 2 diabetes mellitus without complications; J45.909 Unspecified asthma, uncomplicated
CPT/HCPCS: 36415; 71045; 80048; 80061; 83036; 84484; 85025; 85610; 85730; 93005; 93458; 99291; A9270; C1725; C1769; C1874; C1887; C1894; C9606; J0583; J1327; J1644; J2250; J3010; J7030; J7040

== ENCOUNTER 2020-06-29 20:34 | Inpatient (IN) | payer BC, SELFPAY ==
[2020-06-29] VITALS (7 sets, daily range): BP systolic 94–124; BP diastolic 56–93; PULSE 61–115; RESP 16–24; TEMP 36.6–36.7; O2SAT 93–100; BMI 39.6
--- NOTE | ~2020-06-29 | XR_ITS ---
XR chest 1V portable DATE: 06/29/2020 21:02 INDICATION: Mid chest pain, fatigue, shortness of breath. STEMI. TECHNIQUE: Portable AP chest COMPARISON: 06/24/2020 portable AP chest FINDINGS: Normal heart size. No hilar or mediastinal enlargement. No pulmonary infiltrate or consolid ation, pleural effusion or pulmonary vascular congestion or pneumothorax. IMPRESSION: No active cardiopulmonary disease Reviewed, dictated and finalized at location A.
--- NOTE | 2020-06-29 20:36 | ECG_ITS ---
Measurements Intervals [place] Rate: 110 P: 53 [place]: 146 QRS: 71 QRSD: 90 T: 87 QT: 319 QTc: 432 Interpretive Statements SINUS TACHYCARDIA ANTEROSEPTAL ST ELEVATION MYOCARDIAL INFARCT- ACUTE HIGH LATERAL ST ELEVATION MYOCARDIA INFARCT- PROBABLY RECENT BASELINE ARTIFACT- I, III, AVL ABNORMAL ECG Electronically Signed On 06-30-2020 8:21:16 CDT by Derrell Nelson D.O.
--- NOTE | 2020-06-29 20:55 | ED.CHESTPAIN ---
HPI - Chest Pain General Chief Complaint: Chest Pain Stated Complaint: chest pain, stent placed on saturday Time Seen by Provider: 06/29/20 20:44 Source: patient Mode of arrival: ambulatory Limitations: no limitations History of Present Illness HPI narrative: This patient is a 50 year old female with history of diabetes mellitus, CAD s/p stent 5 days ago , S/p STEMI who presents for midsternal chest pain. She reports she developed chest pain earlier this morning and it has progressively worsening. She describes her pain as burning and it radiated to her back pain. She took nitroglycerin prior to arrival and this help to improve her pain to 2/10. Her pain is not as severe as her [place] 5 days ago. She reports nausea but not vomiting. She also denies abdominal pain, blood stools or melena. Related Data Home Medications Medication Instructions Recorded Confirmed metoprolol succinate 12.5 mg PO HS 06/29/20 06/29/20 Allergies Allergy/AdvReac Type Severity Reaction Status Date / Time No Known Allergies Allergy Mild Unverified 04/10/12 16:26 Review of Systems Review of Systems: All systems reviewed & are unremarkable except as noted in HPI and below Constitutional: Constitutional: Denies chills and Denies fever(s) Cardiovascular: Cardiovascular: Reports chest pain Respiratory: Respiratory: Denies cough and Reports dyspnea Gastrointestinal: Gastrointestinal: Denies abdominal pain, Reports diarrhea, Reports nausea and Denies vomiting PMFSH Past Medical History Medical History (Updated 06/30/20 @ 06:36 by Shelby Taylor MD) Asthma Diabetes mellitus STEMI (ST elevation myocardial infarction) Surgical History Surgical History (Updated 06/26/20 @ 01:39 by Lalo Gong MD) No pertinent past surgical history Stented coronary artery Social History Social History Smoking packs per day: 1 Smoking cigarettes per day: 20.0 Smoking status: Current every day smoker Tobacco type: cigarettes Second hand tobacco smoke exposure: Yes Smoking end date: 06/24/20 Alcohol intake: never Substance use: never Substance use type: does not use Gender identity (if verbalized by the patient): Female Spiritual care concerns: No Exam Narrative: Exam Narrative: GENERAL: Well-appearing, well-nourished, and in no acute distress. HEAD: Normocephalic, atraumatic EYES: PERRLA and EOMI, conjunctiva clear without discharge THROAT:Mucous membranes moist NECK: Supple, without lymphadenopathy or mass RESPIRATORY: No respiratory distress, Airway patent, Respirations non-labored, Clear to auscultation without rales, rhonchi or wheeze HEART:Tachycardic rate, regular rhythm No murmur heard. Normal peripheral pulses. ABDOMEN: Soft, nontender, nondistended, normal active bowel sounds. No masses. No rebound or guarding, No organomegaly. EXTREMITIES: No edema, normal strength with full range of motion. SKIN: Warm, dry, normal color without rash NEURO: Alert and oriented x3. CN 2-12 grossly intact. No focal deficits. PSYCH: Normal mood and affect. Course Consultations Consultation #1: I Discussed with Dr. Cassie Miller patient case and EKG. He states he is coming to take patient to the excavation laborer Date: 06/29/20 Time: 20:50 Vital Signs Vital signs: Vital Signs Temperature 97.8 F 06/29/20 20:38 Pulse Rate 115 H 06/29/20 20:38 Respiratory Rate 18 06/29/20 20:38 Blood Pressure 124/93 H 06/29/20 20:38 Pulse Oximetry 100 06/29/20 20:38 Temperature 98.1 F 06/29/20 23:01 Pulse Rate 60 06/30/20 06:00 Respiratory Rate 18 06/30/20 06:00 Blood Pressure 100/75 06/30/20 06:00 Pulse Oximetry 97 06/30/20 06:00 MDM - Chest Pain Lab Data Attestation: I reviewed the patient's lab results. Result diagrams: 06/29/20 20:54 06/29/20 20:54 Labs: Lab Results 06/29/20 06/29/20 06/29/20 Range/Units 2
[2020-06-29 21:00] LABS: Basophils Absolute Auto 0.2 K/mm3 (0.0-0.1); Basophils Percent Auto 1.1 % (0.2-1.2); Eosinophils Absolute Auto 0.4 K/mm3 (0-0.3); Eosinophils Percent Auto 2.6 % (0-4.4); Hematocrit 42.2 % (37.0-47.0); Immature Granulocyte Absolute 0.05 K/mm3 (0.00-0.031); Immature Granulocyte Percent A 0.4 % (0-0.5); Lymphocytes Absolute Auto 4.38 K/mm3 (0.9-3.2); Lymphocytes Percent Auto 31.1 % (18.3-44.2); Mean Corpuscular HGB Conc 35.5 g/dl (32-36); Mean Corpuscular Hemoglobin 31.4 pg (26-34); Mean Corpuscular Volume 88.5 fl (80-100); Mean Platelet Volume 10.6 fl (7.4-10.4); Monocytes Absolute Auto 0.9 K/mm3 (0.1-0.6); Monocytes Percent Auto 6.2 % (2.6-8.5); Neutrophils Absolute Auto 8.3 K/mm3 (1.3-6.7); Neutrophils Percent Auto 58.6 % (45.5-73.1); Platelet Count Result 382 k/mm3 (150-375); Red Blood Count 4.77 M/mm3 (4.2-5.4); Red Cell Distribution Width 12.2 % (11.5-14.5); White Blood Count 14.1 K/mm3 (4.5-10.0)
[2020-06-29] MEDS: ASPIRIN 81 MG CHEWABLE TABLET 324 MG PO (21:00)
[2020-06-29] MEDS: ONDANSETRON INJ 4 MG/2 ML VIAL IV PUSH (21:01)
[2020-06-29] MEDS: HEPARIN SODIUM 5,000 UNITS/ML VIAL 5000 UNITS IV PUSH (21:08)
[2020-06-29 21:10] LABS: Prothrombin Time 12.8 Seconds (11.1-14.7)
[2020-06-29] MEDS: MORPHINE SULFATE 2 MG/ML INJ IV PUSH (21:11)
[2020-06-29 21:12] LABS: Anion Gap 11 mmol/L (8-16); Blood Urea Nitrogen 15 mg/dL (7-17); Calcium 9.8 mg/dL (8.4-10.2); Carbon Dioxide 21 mmol/L (22-30); Chloride 102 mmol/L (98-107); Estimated Glomerular Filt Rate > 60; Glucose 188 mg/dL (65-105); Potassium 4.1 mmol/L (3.4-5.0); Sodium 134 mmol/L (137-145)
[2020-06-29 22:41] LABS: Activated Clotting Time 164 sec (74-137)
[2020-06-29 22:41] LABS: Activated Clotting Time 285 sec (74-137)
--- NOTE | 2020-06-29 22:44 | PM.CNCAR ---
Assessment and Plan Additional Plan acute chest pain with subtle EKG changes in patient with recent STEMI and ant wall SD with residual sever disease in RCA. plan emergency [facility] revealed patent stent in LAD, sever disease in RCA 99% in mid and 90% in distal RCA, s/p PCI to distal RCA with one THUY Xience Vianca 3.0 * 23 and mid RCA with XIENCE Vianca 3.5 * 15. Pain resolved afterwards and feels better Cont DAPT, statin, B-pako, high dose statin, ACEI History of Present Illness History of Present Illness Consult date/time: 06/29/20 22:44 Consult reason: chest pain Reason For Visit: chest pain, stent placed on saturday, STEMI Narrative: patient presented with acute chest pain started since 5 PM persistent, retrosternal, mild to moderate, burning or aching, radiates to back, no precipitating or relieving factors. She had STEMI one week ago with PCi to LAD, Pain at this time was severe. She is compliant with medications. Review of Systems Review of Systems: All systems reviewed & are unremarkable except as noted in HPI and below ROS unobtainable: Yes unobtainable due to endotracheal tube PMFSH Past Medical History Medical History (Updated 06/29/20 @ 21:08 by Shelby Taylor MD) Asthma Diabetes mellitus STEMI (ST elevation myocardial infarction) Surgical History Surgical History (Updated 06/26/20 @ 01:39 by Lalo Gong MD) No pertinent past surgical history Stented coronary artery Social History Social History Smoking packs per day: 1 Smoking cigarettes per day: 20.0 Smoking status: Current every day smoker Tobacco type: cigarettes Second hand tobacco smoke exposure: Yes Smoking end date: 06/24/20 Alcohol intake: never Substance use: never Gender identity (if verbalized by the patient): Female Spiritual care concerns: No Meds Home Medications and Allergies Home Medications Medication Instructions Recorded Confirmed Type aspirin [Children's Aspirin] 81 mg BYMOUTH DAILY #100 tablet 06/26/20 Rx atorvastatin 40 mg BYMOUTH DAILY #30 tablet 06/26/20 Rx lisinopril 5 mg PO QAM #30 tablet 06/26/20 Rx metformin 500 mg PO BIDWM #60 tablet 08/30/20 Rx metoprolol succinate 12.5 mg PO DAILY #30 tablet 06/26/20 Rx nicotine [Nicoderm CQ] 1 patch TRANSDERMAL QAM #30 ea 06/26/20 Rx nitroglycerin [Nitrostat] 0.4 mg SUBLINGUAL Q5MIN PRN #30 06/26/20 Rx tablet ticagrelor [Brilinta] 90 mg BYMOUTH BID #60 tablet 06/26/20 Rx Allergies Allergy/AdvReac Type Severity Reaction Status Date / Time No Known Allergies Allergy Mild Unverified 04/10/12 16:26 Vital Signs Vital Signs - 24 hr 06/29/20 20:38 06/29/20 20:50 06/29/20 21:01 Temperature 36.6 C Pulse Rate 115 H 108 H 96 Respiratory Rate 18 24 H 21 H Blood Pressure 124/93 H 123/88 111/56 L Pulse Oximetry 100 93 100 06/29/20 21:38 Temperature Pulse Rate 96 Respiratory Rate 20 Blood Pressure 106/78 Pulse Oximetry 100 Exam Const: General: comfortable and no acute distress Other: Able to lie flat HENMT: General nose exam: Normal nares present and no epistaxis Mouth: Yes moist mucous membranes Eyes: Sclera: sclerae normal Pupils: Equal, round and reactive pupils present Neck: Neck: supple and no JVD Carotids: no bruits Resp: Auscultation: clear to auscultation bilaterally and lung sounds not diminished Other: No chest wall tenderness Cardio: Rate: regular rate Rhythm: regular rhythm Heart sounds: no gallops, no murmurs and no rubs GI: GI Palp: Yes Soft to palpation and No Tenderness to palpation present (GI) Auscultation: normal bowel sounds Skin: General skin exam: normal color, rashes and/or lesions noted and no erythema Other: Warm Neuro: Cranial nerves: Yes Equal, round and reactive pupils present Speech: normal speech Other: No obvious focal deficit or facial asymmetry Extrem: General: no edema Other: Normal capillary refills Intact di
--- NOTE | 2020-06-29 22:51 | WPDCARDPROC ---
Cardiac Cath Procedure Note Date of procedure:: 06/29/20 Performing physician:: Myron Mario MD Assessment and Plan Additional Plan INDICATION: 1. NSTEMI HISTORY Patient presented with acute sever chest pain, EKG showed subtle EKG changes concerning for ST elevation but giving recent PCI and stent to LAD will proceed with emergency LHC PROCEDURES 1. Coronary angiogram 2. LHC 3. PCI to distal RCA and mid RCA ACCESS SITE: Rt radial PROCEDURE DETAILS Consent obtained and time out done. Access site prepped and draped in sterile fashion. Moderate sedation given with versed and fentanyl and tolerated well, see nurses note for doses Access obtained with modified Seldinger technique with no difficulty. Radial spasm relieved with NTG and use of smaller catheter Coronary angiogram was recorded using TIG 6F catheter in different angels LHC was done with TIG catheter HEMODYNAMIC FINDINGS LVEDP 7 no gradeitn across AV Aortic pressure 110/70 ANGIOGRAPHIC FINDINGS 1. Left main: normal, free of obstructive disease, gives LAD and LCX 2. LAD: patent stent in mid LAD, remaining of LAD and large D1 are free of obstructive disease 3. LCX: Non dominant vessel that gives 2 OM branches, LCX and OM are free of obstructive disease 4. RCA: Dominant vessel gives rPDA and rPL. RCA has mid segment 99% stenosis and distal 90% stenosis PCI DETAILS Pre intervention Lesion: distal RCA lesion 90% stenosis, type C lesion, BRITTNEY 3 flow Guide catheter: JR 4 F Anticoagulation: Heparin to target ACT > 250 sec Antiplatelet therapy: ASA and Ticagrelor given Guide wire: Samurai used to cross to distal vessel Balloon dilation was done with Emerge 2.5 * 12 balloon at 12 JONATAN Stent XIENCE Vianca 3.0* 23 mm deployed at lesion at 12 JONATAN, post stent balloon dilation was done with Quantum apex NC balloon at 12 JONATAN Post intervention: residual stenosis 0% and BRITTNEY 3 flow established PCI DETAILS Pre intervention Lesion: midl RCA lesion 90% stenosis, type A lesion, BRITTNEY 3 flow Guide catheter: JR 4 F Anticoagulation: Heparin to target ACT > 250 sec Antiplatelet therapy: ASA and Ticagrelor given Guide wire: Samurai used to cross to distal vessel Balloon dilation was done with Emerge 2.5 * 12 balloon at 12 JONATAN Stent XIENCE Vianca 3.5* 15 mm deployed at lesion at 12 JONATAN, post stent balloon dilation was done with Quantum apex NC balloon at 16 JONATAN Post intervention: residual stenosis 0% and BRITTNEY 3 flow established COMPLICATION: None Estimated blood loss: 30 ml Patient tolerated procedure well, asymptomatic at end of procedure, awake, intact pulses and following commands CONCLUSION s/p PCI to distal RCA with one THUY XIENCE Vianca 3.0 * 23 s/p PCI to mid RCA with one THUY Xience Vianca 3.5 * 15 RECOMMENDATION DAPT for at least one year TTE
--- NOTE | 2020-06-29 23:01 | ECG_ITS ---
Measurements Intervals [place] Rate: 60 P: 49 ID: [id number] QRS: 69 QRSD: 92 T: 91 QT: 419 QTc: 419 Interpretive Statements SINUS RHYTHM LOW QRS VOLTAGE IN PRECORDIAL LEADS BORDERLINE T WAVE ABNORMALITY- HIGH LATERAL LEADS BASELINE ARTIFACT- I, II, AVR, AVL BORDERLINE ECG Electronically Signed On 06-30-2020 9:59:13 CDT by Derrell Nelson D.O.
--- NOTE | 2020-06-29 23:07 | ADMGEN ---
This patient, Maggy Ojeda, was admitted to Intensive Care Unit-10. Patient/family oriented to hospital policies and general routines including ID bracelet, bed and alarms, visiting hours, pain management, procedures, bathroom and other care routines, personal items, smoking policy, room service/diet, and visiting hours. Valuables list has been completed. Information on how to activate the Rapid Response Team has been discussed. Patient/Family are encouraged to report perceived risks to care and to ask questions if they do not understand what they are told or what they should do.
[2020-06-29] MEDS: SODIUM CHLORIDE 0.9% IV 1,000 ML 125 ML IV CONT (23:55)
[2020-06-30] VITALS (24 sets, daily range): BP systolic 91–112; BP diastolic 52–75; PULSE 53–86; RESP 14–20; TEMP 36.2–36.9; O2SAT 95–100
--- NOTE | 2020-06-30 | ECHO_ITS ---
Patient Info Name: Maggy Ojeda Age: 50 years : 1970 Gender: Female Ht: 69 in Wt: 265 lbs BSA: 2.47 m2 HR: 55 bpm BP: 100 / 75 mmHg Heart Rhythm: Sinus Rhythm, Bradycardia Technical Quality: Good Exam Date: 06/30/2020 7:46 AM Exam Location: [facility] Patient Status: Inpatient Admit Date: 06/29/2020 Staff Ordering Physician: Myron Mario MD Credit Administration Officer: Mike Kirk, GREGORY, RT Attending Provider: Myron Mario MD Exam Type: CA echo dop color flow w con Study Info Indications I21.4 - Non-ST elevation (NSTEMI) myocardial infarction Complete two-dimensional, color flow and Doppler transthoracic echocardiogram is performed with contrast to opacify the left ventricle and to improve the deliniation of the left ventricle endocardial borders. Summary 1. Left ventricular chamber dimension is normal. 2. Left ventricular systolic function is normal, estimated at 60-65%. 3. There is no increased left ventricular wall thickness. 4. The left ventricular diastolic function is normal. 5. The apical cap is akinetic. 6. The apical septum, apical lateral wall, apical anterior wall, mid anterior wall, and mid anteroseptal are hypokinetic. 7. There is mild tricuspid valve regurgitation. Left Ventricle Left ventricular chamber dimension is normal. Left ventricular systolic function is normal, estimated at 60-65%. There is no increased left ventricular wall thickness. The left ventricular diastolic function is normal. The apical cap is akinetic. The apical septum, apical lateral wall, apical anterior wall, mid anterior wall, and mid anteroseptal are hypokinetic. All other lopes appear normal. Right Ventricle Right ventricular chamber dimension is normal. Right ventricular systolic function is normal. Left Atria Left atrial chamber dimension is normal. Right Atria Right atrial chamber dimension is normal. Atrial Septum Intact interatrial septum visualized by color flow imaging. Aortic Valve The aortic valve is trileaflet. There is mild aortic valve sclerosis. There is no aortic valve stenosis. There is trace aortic valve regurgitation. Pulmonic Valve The pulmonic valve is normal. There is no pulmonic valve stenosis. There is trace pulmonic regurgitation. Mitral Valve The mitral valve has normal leaflets. There is no mitral valve stenosis. There is trace mitral valve regurgitation. Tricuspid Valve The tricuspid valve leaflets are normal. There is no significant tricuspid valve stenosis. There is mild tricuspid valve regurgitation. No pulmonary hypertension, estimated pulmonary arterial systolic pressure is 31 mmHg. Pericardium/Pleural The pericardium appears normal. There is trivial pericardial effusion. Inferior Vena Cava Normal inferior vena cava with >50% collapse upon inspiration consistent with normal right atrial pressure, 5 mmHg. Aorta The aortic root size at the sinus of Valsalva is normal. Left Ventricular Outflow Tract Name Value Normal LVOT 2D LVOT Diameter 1.99 cm LVOT Doppler LVOT Peak Gradient 4 mmHg LVOT Kay
[2020-06-30] MEDS: PANTOPRAZOLE 40 MG TABLET PO ×2 (00:29→11:58)
[2020-06-30] MEDS: ACETAMINOPHEN 325 MG TABLET 650 MG PO ×5 (02:35→19:53)
[2020-06-30 02:58] LABS: Partial Thromboplastin Time 119.5 SECONDS (22.3-36.8)
[2020-06-30 04:49] LABS: Partial Thromboplastin Time 38.2 SECONDS (22.3-36.8)
[2020-06-30] MEDS: PERFLUTREN LIPID MICROSPHERES 1.5 ML VIAL DILUTED TO 10 ML TOTAL VOLUME IV PUSH (10:14)
--- NOTE | 2020-06-30 11:50 | PM.PNCARD ---
Progress Note: A&P Assessment and Plan (1) ACS (acute coronary syndrome): Code(s): I24.9 - Acute ischemic heart disease, unspecified Status: Acute Assessment and Plan: patient had acute coronary syndrome. This is likely related to a unstable angina situation. She was taken to the catheterization lab emergently did likely due to residual affects from previous infarction involving the LAD territory. She had no ST elevations in inferior leads. regardless, she did have symptoms likely correlating to the significant stenosis involving the RCA. She now feels well status post 2 drug-eluting stents. Continue current regimen including dap, metoprolol, lisinopril, atorvastatin. Okay to transfer time you. Likely DC tomorrow (2) Tobacco abuse: Code(s): Z72.0 - Tobacco use Status: Acute Assessment and Plan: refraining (3) Hypercholesteremia: Code(s): E78.00 - Pure hypercholesterolemia, unspecified Status: Chronic Assessment and Plan: on high-dose statin (4) Obesity (BMI 30-39.9): Code(s): E66.9 - Obesity, unspecified Status: Chronic Subjective Date/time seen: 06/30/20 11:50 Interval history: reason for admission: Chest pain / ACS Date of service 06/30/2020: She feels much better today. Her heartburn / shortness of breath symptoms have improved. Denies any chest pain or shortness of breath Review of Systems Review of Systems: All systems reviewed & are unremarkable except as noted in HPI and below Constitutional: Constitutional: Denies weakness Eyes: Eyes: Denies blurry vision ENT: Denies nasal congestion Cardiovascular: Cardiovascular: Denies chest pain Respiratory: Respiratory: Denies dyspnea Gastrointestinal: Gastrointestinal: Denies abdominal pain Genitourinary: Genitourinary: Denies flank pain Musculoskeletal: Musculoskeletal: Denies neck pain Integumentary/Breasts: Skin/Breast: Denies dry skin Neurologic: Denies headache(s) Psychiatric: Psychiatric: Denies anxiety Endocrine: Endocrine: Denies cold intolerance Hematologic/Lymphatic: Hematologic/Lymphatic: Denies easy bleeding Allergic/Immunologic: Allergic/Immunologic: Denies GI upset with certain foods Exam Narrative: Exam Narrative: alert oriented. Appears to be in no acute distress. She is pleasant Const: General: no acute distress HENMT: General nose exam: Normal nares present Eyes: Sclera: sclerae normal Neck: Neck: supple and no JVD Resp: Auscultation: clear to auscultation bilaterally Cardio: Rate: regular rate Rhythm: regular rhythm GI: Auscultation: normal bowel sounds Skin: General skin exam: normal color Neuro: Cognition (Neuro): normal cognition Speech: normal speech Extrem: General: normal to inspection Psych: Mental Status: mental status grossly normal Objective Data Vital Signs Vital Signs: Vital Signs - 24 hr 06/29/20 20:38 06/29/20 20:50 06/29/20 21:01 Temperature 36.6 C Pulse Rate 115 H 108 H 96 Respiratory Rate 18 24 H 21 H Blood Pressure 124/93 H 123/88 111/56 L Pulse Oximetry 100 93 100 06/29/20 21:38 06/29/20 23:01 06/29/20 23:16 Temperature 36.7 C Pulse Rate 96 64 67 Respiratory Rate 20 16 16 Blood Pressure 106/78 95/60 L 100/57 L Pulse Oximetry 100 99 98 06/29/20 23:31 06/30/20 00:00 06/30/20 00:01 Temperature Pulse Rate 61 65 64 Respiratory Rate 19 14 Blood Pressure 94/61 L 99/64 L Pulse Oximetry 97 99 06/30/20 00:31 06/30/20 01:01 06/30/20 02:00 Temperature Pulse Rate 58 L 60 58 L Respiratory Rate 15 19 Blood Pressure 102/64 103/63 Pulse Oximetry 98 98 06/30/20 02:01 06/30/20 03:00 06/30/20 04:00 Temperature Pulse Rate 58 L 63 60 Respiratory Rate 17 17 18 Blood Pressure 93/65 L 92/62 L 96/61 L Pulse Oximetry 98 97 98 06/30/20 05:00 06/30/20 06:00 06/30/20 08:00 Temperature 36.9 C Pulse Rate 54 L 60 54 L Respiratory Rate 20 18 20 Blood Pressure 96
[2020-06-30] MEDS: ASPIRIN 81 MG ENTERIC TABLET PO (11:56)
[2020-06-30] MEDS: TICAGRELOR 90 MG TABLET PO ×2 (11:56→21:26)
[2020-06-30] MEDS: ATORVASTATIN 40 MG TABLET 80 MG PO (11:57)
[2020-06-30] MEDS: METOPROLOL TARTRATE 12.5 MG TABLET PO ×2 (11:57→21:21)
[2020-06-30] MEDS: lisinopriL 5 MG TABLET PO (11:58)
--- NOTE | 2020-06-30 12:49 | WPDCNINT ---
Assessment and Plan Assessment and plan (1) ACS (acute coronary syndrome): Code(s): I24.9 - Acute ischemic heart disease, unspecified Status: Acute Assessment and Plan: patient had acute coronary syndrome with chest pain, heartburn, presented the ED where she was found to have EKG changes in the inferior leads, taken to the cardiac laborer driver which she was found to have mid RCA occlusion and 90% distal RCA stenosis status post PTCA/PCI with THUY x1 placed to distal RCA and THUY x1 place to mid RCA. - Patient on dual antiplatelet therapy - continue statin, metoprolol and lisinopril (2) Hypercholesteremia: Code(s): E78.00 - Pure hypercholesterolemia, unspecified Status: Chronic Assessment and Plan: continue high-dose statin (3) Obesity (BMI 30-39.9): Code(s): E66.9 - Obesity, unspecified Status: Chronic Assessment and Plan: patient is already started to make some lifestyle changes since her last STEMI on 06/24/2020 (4) History of placement of stent in LAD coronary artery: Code(s): Z95.5 - Presence of coronary angioplasty implant and graft Status: Acute Assessment and Plan: recently admitted for anterior ST-elevation ND with THUY x1 to LAD on 06/24/2020 - patient states she has been taking her heart medications regularly Additional Plan discussed with patient updated with her condition and plan of care patient will be transferring to intermediate unit code status: Full code critical care time spent: 37 minutes Due to a high probability of clinically significant, life threatening deterioration, the patient required my highest level of preparedness to intervene emergently and I personally spent this critical care time directly and personally managing the patient. This critical care time included obtaining a history; examining the patient; pulse oximetry; ordering and review of studies; arranging urgent treatment with development of a management plan; evaluation of patient's response to treatment; frequent reassessment; and discussions with other providers. It was exclusive of separately billable procedures and treating other patients and teaching time. Please see Assessment and Plan section and the rest of the note for further information on patient assessment and treatment Pivot End Polisher Consult Note Consult date: 06/30/20 Time Seen: 07:04 Reason for consult: STEMI status post PTCA / PCI with THUY x2 to mid and distal RCA, HPI: where she was found to haveJordivel Ojeda is a 50 year old female with PMH of obesity, tobacco use, osteoarthritis, hypercholesterolemia, borderline diabetes, STEMI on 06/24/2020 S post THUY x1 to LAD, presented the ED on 06/29/2020 with complains of substernal chest pain which started and the morning of the day of admission and progressively worsened during the course of the day. Presented the ED which she was found to have inferior ST-elevation ND. Patient was taken to the laborer driver which she was found to have 99% stenosis of mid RCA and 90% stenosis of distal RCA. Status post THUY x2 to mid and distal RCA. Patient was transferred to the ICU for further management patient seen and examined this morning, denies any chest pain, shortness of breath, abdominal pain, nausea vomiting. Hemodynamically stable, afebrile with adequate urine output Review of Systems Review of Systems: All systems reviewed & are unremarkable except as noted in HPI and below PMFSH Past Medical History Medical History (Updated 06/30/20 @ 11:53 by True Poon MD) Asthma Diabetes mellitus STEMI (ST elevation myocardial infarction) Surgical History Surgical History (Updated 06/26/20 @ 01:39 by Lalo Gong MD) No pertinent past surgical history Stented coronary artery Social History Social History Smoking packs per day: 1 Smoking cigarettes per day: 20.0 Smoking status: Current augustin
--- NOTE | 2020-06-30 15:54 | PC.NURSE ---
This patient, Maggy Ojeda, was transferred to [ [id number]] on 06/30/20 at 1554. Personal belongings sent with patient. [ ]. Report given to [ JULIUS Rasmussen]. Appropriate documentation sent with patient.
[2020-06-30] MEDS: CALCIUM CARBONATE (TUMS) 500 MG (200 MG ELEMENTAL) PO (23:05)
[2020-07-01] VITALS (8 sets, daily range): BP systolic 103–106; BP diastolic 51; PULSE 55–82; RESP 18–20; TEMP 36.2–36.8; O2SAT 97–100
[2020-07-01] MEDS: ACETAMINOPHEN 325 MG TABLET 650 MG PO ×2 (00:06→08:32)
[2020-07-01] MEDS: ASPIRIN 81 MG ENTERIC TABLET PO (08:31)
[2020-07-01] MEDS: lisinopriL 5 MG TABLET PO (08:31)
[2020-07-01] MEDS: PANTOPRAZOLE 40 MG TABLET PO (08:31)
[2020-07-01] MEDS: METOPROLOL TARTRATE 12.5 MG TABLET PO (08:31)
[2020-07-01] MEDS: TICAGRELOR 90 MG TABLET PO (08:32)
[2020-07-01] MEDS: ATORVASTATIN 40 MG TABLET 80 MG PO (08:32)
--- NOTE | 2020-07-01 11:05 | PM.DS ---
DS: Admitting Diagnosis Admitting Diagnosis Admitting Diagnosis: Chest pain with recent drug-eluting stent to the LAD. ACS DS: Discharge Diagnosis Discharge Diagnosis (1) ACS (acute coronary syndrome): Code(s): I24.9 - Acute ischemic heart disease, unspecified Status: Acute Assessment and Plan: ACS. Likely related to a unstable angina situation. She was taken to the catheterization lab emergently due to residual affects from previous infarction involving the LAD territory. She had no ST elevations in inferior leads. Regardless,she did have symptoms likely correlating to the significant stenosis involving the RCA. Status post 2 drug-eluting stents the right coronary artery. Continue current regimen including Aspirin, Brilinta, metoprolol, lisinopril, atorvastatin. Denied chest discomfort or shortness of breath. Ambulating in the room with no symptoms. No arrhythmias on monitor. (2) Tobacco abuse: Code(s): Z72.0 - Tobacco use Status: Acute Assessment and Plan: Smoking cessation counseling done (3) Hypercholesteremia: Code(s): E78.00 - Pure hypercholesterolemia, unspecified Status: Chronic Assessment and Plan: On high-dose statin (4) Obesity (BMI 30-39.9): Code(s): E66.9 - Obesity, unspecified Status: Chronic Assessment and Plan: Diet with goal at weight loss DS: Summary Hospital Course Reason for hospitalization: Acute coronary syndrome Hospital Course: 50-year-old female with a recent ST-elevation myocardial infarction on 06/24/2020 with a stent to the LAD with planned staged intervention to the right coronary artery presented to the emergency room with acute coronary syndrome. She was taken to the cardiac catheterization lab by Dr. Mario with findings of 90% distal right coronary artery stenosis. The LAD stent was patent. She proceeded on to intervention with XIENCE Vianca 3.5 X 15 mm to the right coronary artery. Her regimen was continued including aspirin, atorvastatin, Brilinta, lisinopril and Metoprolol succinate. She was monitored overnight. Transferred out to the IMU. Ambulation is increased. Right radial site was without swelling or bleeding. Fingers were warm. Pulse was present. FMLA paperwork was filled out so she could take it to her employer. She was discharged home in stable and pain-free condition. Time spent discussing smoking cessation with patient: 3 to 10 minutes Status at Discharge Functional status at discharge: independent ambulation Overall status at discharge: patient is back to baseline Time Spent with Patient Time attestation: Total time spent providing and/or coordinating discharge services: 20 minutes in the room instructions/ smoking cessation / previous stent information / FMLA paperwork. Order 10 minutes. Discharge summary 15 minutes. Total time: 45 minutes Exam Narrative: Exam Narrative: Alert oriented. No acute distress. She is pleasant. Wants to go home. Const: General: comfortable and no acute distress Other: Able to lie flat HENMT: General nose exam: Normal nares present and no epistaxis Mouth: Yes moist mucous membranes Eyes: Sclera: sclerae normal Pupils: Equal, round and reactive pupils present Neck: Neck: supple and no JVD Carotids: no bruits Resp: Auscultation: clear to auscultation bilaterally and lung sounds not diminished Cardio: Rate: regular rate Rhythm: regular rhythm Heart sounds: no gallops, no murmurs and no rubs GI: Auscultation: normal bowel sounds Skin: General skin exam: normal color, rashes and/or lesions noted and no erythema Other: Warm Neuro: Cranial nerves: Yes Equal, round and reactive pupils present Cognition (Neuro): normal cognition Speech: normal speech Other
== END 2020-07-01 11:50 | disposition home or self-care (01) | DRG 246 ==
LOC: ANHED 20:48 → ANHICU 21:00 → ANHIMU 06-30 22:02 → ANHICU 07-06 16:10 → ANHIMU 07-06 16:10
PROVIDERS: Emergency Medicine; Admitting Provider Internal Medicine Interventional Cardiology; Emergency Provider General Practice; Visit Provider Nurse Practitioner Adult Health
PROC: 4A023N7 Measurement of Cardiac Sampling and Pressure, Left Heart, Percutaneous Approach (ICD-10-PCS; CPT 93452; principal; 2020-06-29 21:25)
PROC: 027035Z Dilation of Coronary Artery, One Artery with Two Drug-eluting Intraluminal Devices, Percutaneous Approach (ICD-10-PCS; 2020-06-29 21:25)
DX: I24.9 Acute ischemic heart disease, unspecified; I21.3 ST elevation (STEMI) myocardial infarction of unspecified site; I25.110 Atherosclerotic heart disease of native coronary artery with unstable angina pectoris; E78.00 Pure hypercholesterolemia, unspecified; E66.9 Obesity, unspecified; Z68.39 Body mass index [BMI] 39.0-39.9, adult; R73.03 Prediabetes; J45.909 Unspecified asthma, uncomplicated; F17.210 Nicotine dependence, cigarettes, uncomplicated; M19.90 Unspecified osteoarthritis, unspecified site; Z79.82 Long term (current) use of aspirin; Z79.899 Other long term (current) drug therapy; Z95.5 Presence of coronary angioplasty implant and graft
CPT/HCPCS: 36415; 71045; 80048; 84484; 85025; 85610; 85730; 93005; 93306; 93458; 99291; A9270; C1725; C1769; C1874; C1887; C1894; C8929; C9600; J1644; J2250; J2270; J2405; J3010; J7030; Q9957

== ENCOUNTER 2020-08-25 10:45 | Outpatient (RCR) | payer BC, SELFPAY ==
[2020-08-24 08:02] VITALS: BMI 33.8
[2020-08-24 08:05] VITALS: BMI 33.8
== END 2020-11-07 14:15 | disposition home or self-care (01) ==
LOC: ANHDMC 10:45
PROVIDERS: PCP Family Medicine; Visit Provider Nurse Practitioner Adult Health
DX: E11.65 Type 2 diabetes mellitus with hyperglycemia (principal); Z71.3 Dietary counseling and surveillance; Z71.89 Other specified counseling
CPT/HCPCS: 97802; G0108

== ENCOUNTER 2020-09-16 00:49 | Emergency (ER) | payer BC, SELFPAY ==
--- NOTE | ~2020-09-16 | CT_ITS ---
EXAMINATION: CTA chest PE protocol DATE: 09/16/2020 04:07 INDICATION: Chest pain. TECHNIQUE: Computed tomography angiography (CTA) of the chest was performed with 100 mL Omnipaque-350 intravenous contrast timed to evaluate the pulmonary arteries. Coronal maximum intensity projection 3D-reconstructions were created by the technologist. Automated exposure control and iterative reconst ruction technique were employed. The dose-length product was 845.46 mGy-cm. COMPARISON: CT abdomen and pelvis 03/15/2014 FINDINGS: There is mild emphysema. Calcified bilateral lung nodules and calcified right hilar lymph n odes are consistent with old granulomatous disease. No pleural effusion. The heart size is normal. Th ere are coronary artery calcifications. No pericardial effusion. There is no pulmonary embolus. There is a small sliding hiatal hernia. Calcifications in the spleen are consistent with old granulomatous disease. There is a 2 mm stone in right kidney. There is moderate thoracic spondylosis. IMPRESSION: 1. No pulmonary embolus. 2. Mild emphysema. 3. Small sliding hiatal hernia. Reviewed, dictated and finalized at location A. UME DRAPER
--- NOTE | ~2020-09-16 | XR_ITS ---
EXAMINATION: XR chest 1V portable DATE: 09/16/2020 03:48 INDICATION: Chest pain. TECHNIQUE: A single frontal view of the chest was obtained. COMPARISON: Chest single view 06/29/2020, chest CT 09/16/2020 FINDINGS: Calcified right lung nodules and calcified right hilar lymph nodes are consistent with old granulomatous disease. No pleural effusion or pneumothorax. The heart size is normal. IMPRESSION: 1. No acute cardiopulmonary disease. Reviewed, dictated and finalized at location A. EAR POWERPLANT SUPERVISOR
[2020-09-16 00:51] VITALS: BP 142/85; PULSE 65; RESP 20; TEMP 36.6; O2SAT 100
--- NOTE | 2020-09-16 00:55 | ECG_ITS ---
Measurements Intervals [place] Rate: 63 P: 21 AR: 144 QRS: 18 QRSD: 89 T: 61 QT: 385 QTc: 395 Interpretive Statements SINUS RHYTHM LOW QRS VOLTAGE IN PRECORDIAL LEADS BORDERLINE R WAVE PROGRESSION, ANTERIOR LEADS HIGH LATERAL INFARCT, AGE INDETERMINATE ABNORMAL ECG Electronically Signed On 09-16-2020 9:28:36 BODY FORMER by Derrell Nelson D.O.
[2020-09-16 01:54] LABS: Basophils Absolute Auto 0.1 K/mm3 (0.0-0.1); Basophils Percent Auto 0.9 % (0.2-1.2); Eosinophils Absolute Auto 0.3 K/mm3 (0-0.3); Eosinophils Percent Auto 3.2 % (0-4.4); Hematocrit 38.6 % (37.0-47.0); Hemoglobin 13.5 g/dL (12.0-15.0); Immature Granulocyte Absolute 0.02 K/mm3 (0.00-0.031); Immature Granulocyte Percent A 0.3 % (0-0.5); Lymphocytes Absolute Auto 3.59 K/mm3 (0.9-3.2); Lymphocytes Percent Auto 45.4 % (18.3-44.2); Mean Corpuscular Hemoglobin 31.5 pg (26-34); Mean Corpuscular Volume 90.2 fl (80-100); Mean Platelet Volume 10.6 fl (7.4-10.4); Monocytes Absolute Auto 0.5 K/mm3 (0.1-0.6); Monocytes Percent Auto 6.2 % (2.6-8.5); Neutrophils Absolute Auto 3.5 K/mm3 (1.3-6.7); Platelet Count Result 257 k/mm3 (150-375); Red Blood Count 4.28 M/mm3 (4.2-5.4); Red Cell Distribution Width 12.5 % (11.5-14.5); White Blood Count 7.9 K/mm3 (4.5-10.0)
[2020-09-16 02:06] LABS: INR 0.9
[2020-09-16 02:12] LABS: Anion Gap 11 mmol/L (8-16); Blood Urea Nitrogen 9 mg/dL (7-17); Calcium 9.7 mg/dL (8.4-10.2); Carbon Dioxide 21 mmol/L (22-30); Chloride 108 mmol/L (98-107); Estimated CRCL calculation 119 ml/min; Estimated Glomerular Filt Rate > 60; Glucose 101 mg/dL (65-105); Potassium 3.7 mmol/L (3.4-5.0); Sodium 140 mmol/L (137-145); Troponin I < 0.012 ng/mL (0.000-0.034)
[2020-09-16 03:51] VITALS: BP 114/73; PULSE 68; RESP 18; O2SAT 99
--- NOTE | 2020-09-16 03:54 | ED.GENADULT ---
HPI - General Adult General Chief complaint: Chest Pain Stated complaint: palpitations/anxiety Time Seen by Provider: 09/16/20 01:15 History of Present Illness HPI narrative: Patient is a 50-year-old female that presents emerge department with chief complaint of shortness of breath and palpitations. Reports that back in June she had an ST elevation [place] and then subsequently has developed COVID-19. Patient states that since she has had Covid she has had shortness of breath and tonight she felt more short of breath than normal and noticed that she felt as though her heart was beating fast patient reports that was about 90 when her heart was beating like that. The patient states that she was concerned given her prior history of heart disease and decided to come to the emergency department for evaluation. Patient denies fever denies chills. The patient reports symptoms are worsened with exertion and improved with rest Related Data Home Medications Medication Instructions Recorded Confirmed metoprolol succinate 12.5 mg PO HS 06/29/20 07/29/20 Allergies Allergy/AdvReac Type Severity Reaction Status Date / Time No Known Allergies Allergy Mild Unverified 07/11/20 13:40 Review of Systems Review of Systems: Narrative: CONSTITUTIONAL: Denies fever, chills, or sweats. EYES: Denies visual changes, redness, or discharge. ENT: Denies rhinorrhea, congestion, sore throat, or otalgia. CARDIOVASCULAR: Denies chest pain, palpitations, or edema. RESPIRATORY: Denies cough or dyspnea. GASTROINTESTINAL: Denies abdominal pain, nausea, vomiting, or diarrhea. GENITOURINARY: Denies dysuria or hematuria. SKIN: Denies rash or itching. MUSCULOSKELETAL: Denies back pain, joint pain, or myalgia. NEUROLOGIC: Denies headache, numbness, or weakness. PSYCHIATRIC: Denies anxiety or depression. All systems reviewed & are unremarkable except as noted in HPI and below PMFSH Past Medical History Medical History Asthma Diabetes mellitus Hyperlipidemia STEMI (ST elevation myocardial infarction) Surgical History Surgical History No pertinent past surgical history Stented coronary artery 1 stent to LDA and 2 stents to RCA Family History Family History Mother Coronary artery disease Hypertension Cerebrovascular accident Cervical cancer Father Diabetes mellitus Coronary artery disease Congestive heart failure Hypertension Social History Social History Social History: Smoking packs per day: 1 Smoking cigarettes per day: 20.0 Years smoked: 36 Smoking pack-years: 36.00 Smoking status: Former smoker Tobacco type: cigarettes Second hand tobacco smoke exposure: No Smoking end date: 06/24/20 Alcohol intake: never Substance use: never Substance use type: does not use Additional living arrangements comments: pt lives with her daughter Gender identity (if verbalized by the patient): Female Spiritual care concerns: No Comments History of COVID-19 Exam Narrative: Exam Narrative: GENERAL: Well-appearing, well-nourished, and in no acute distress. HEAD: Normocephalic, atraumatic. EYES: PERRLA and EOMI. ENT: Nares clear, no rhinorrhea or epistaxis. Mucous membranes moist. NECK: Supple. CHEST: Clear to auscultation. No respiratory distress. HEART: Regular rate and rhythm. No murmur heard. Normal peripheral pulses. ABDOMEN: Soft, nontender, nondistended, normal active bowel sounds. EXTREMITIES: Normal range of motion. No edema. SKIN: Warm, dry, no rash. NEURO: No focal deficits. Alert and oriented x3. PSYCH: Normal mood and affect. Course Course Emergency Course: EKG shows sinus rhythm rate of [address] elevation or ST depression Vital Signs Vital signs
[2020-09-16 05:19] LABS: Troponin I < 0.012 ng/mL (0.000-0.034)
[2020-09-16 05:39] VITALS: BP 107/68; PULSE 69; RESP 20; O2SAT 98
== END 2020-09-16 05:41 | disposition home or self-care (01) ==
PROVIDERS: Emergency Provider Emergency Medicine; PCP Family Medicine
DX: U07.1 COVID-19 (principal); R06.00 Dyspnea, unspecified; J45.909 Unspecified asthma, uncomplicated; E11.9 Type 2 diabetes mellitus without complications; E78.5 Hyperlipidemia, unspecified; I25.2 Old myocardial infarction; Z95.5 Presence of coronary angioplasty implant and graft; Z87.891 Personal history of nicotine dependence
CPT/HCPCS: 36415; 71045; 71275; 80048; 84484; 85025; 85610; 85730; 93005; 99284; Q9967

== ENCOUNTER 2020-10-06 18:00 | Outpatient (RCR) | payer BC, SELFPAY ==
[2020-07-29 15:36] VITALS: PULSE 67
--- NOTE | 2020-08-31 18:04 | PCCPR ---
absent tonight, work related
--- NOTE | 2020-09-05 18:24 | PCCPR ---
Maggy guillermo for work.
--- NOTE | 2020-09-06 14:18 | PCCPR ---
Maggy called today to let us know she tested positive for COVID and will be out 2 weeks and symptom free for 24hrs.
== END 2020-10-06 19:30 | disposition home or self-care (01) ==
LOC: ANHCPREHAB 18:00
PROVIDERS: PCP Family Medicine; Visit Provider Internal Medicine Cardiovascular Disease
DX: Z95.5 Presence of coronary angioplasty implant and graft (principal)
CPT/HCPCS: 93798

== ENCOUNTER 2020-10-10 07:19 | Outpatient (CLI) | payer BC, SELFPAY ==
[2020-10-10 08:11] LABS: Basophils Absolute Auto 0.1 K/mm3 (0.0-0.1); Eosinophils Absolute Auto 0.4 K/mm3 (0-0.3); Eosinophils Percent Auto 4.4 % (0-4.4); Hematocrit 38.2 % (37.0-47.0); Hemoglobin 12.7 g/dL (12.0-15.0); Immature Granulocyte Absolute 0.02 K/mm3 (0.00-0.031); Immature Granulocyte Percent A 0.3 % (0-0.5); Lymphocytes Absolute Auto 2.93 K/mm3 (0.9-3.2); Lymphocytes Percent Auto 36.9 % (18.3-44.2); Mean Corpuscular HGB Conc 33.2 g/dl (32-36); Mean Corpuscular Hemoglobin 32.1 pg (26-34); Mean Corpuscular Volume 96.5 fl (80-100); Mean Platelet Volume 10.3 fl (7.4-10.4); Monocytes Absolute Auto 0.7 K/mm3 (0.1-0.6); Monocytes Percent Auto 8.8 % (2.6-8.5); Neutrophils Absolute Auto 3.9 K/mm3 (1.3-6.7); Neutrophils Percent Auto 48.6 % (45.5-73.1); Platelet Count Result 257 k/mm3 (150-375); Red Blood Count 3.96 M/mm3 (4.2-5.4); Red Cell Distribution Width 13.1 % (11.5-14.5)
[2020-10-10 08:32] LABS: Alanine Aminotransferase 29 U/L (4-35); Alkaline Phosphatase 77 U/L (38-126); Anion Gap 7 mmol/L (8-16); Aspartate Amino Transferase 23 U/L (14-36); Bilirubin,Total 0.4 mg/dL (0.2-1.3); Blood Urea Nitrogen 10 mg/dL (7-17); Calcium 9.5 mg/dL (8.4-10.2); Carbon Dioxide 29 mmol/L (22-30); Chloride 105 mmol/L (98-107); Estimated Glomerular Filt Rate > 60; Glucose 104 mg/dL (65-105); Potassium 4.1 mmol/L (3.4-5.0); Sodium 141 mmol/L (137-145)
[2020-10-10 09:46] LABS: Thyroid Stimulating Hormone Reflex 0.891 uIU/mL (0.465-4.68)
[2020-10-10 15:54] LABS: Cholesterol 104 mg/dL (0-200)
== END 2020-10-10 07:20 | disposition home or self-care (01) ==
PROVIDERS: PCP Family Medicine; Visit Provider Physician Assistant
DX: R53.83 Other fatigue (principal); E11.9 Type 2 diabetes mellitus without complications; E78.5 Hyperlipidemia, unspecified
CPT/HCPCS: 36415; 80053; 82465; 83036; 84443; 85025

== ENCOUNTER 2021-01-31 08:30 | Outpatient (CLI) | payer BC, SELFPAY ==
[2021-01-31 08:59] LABS: Cholesterol 111 mg/dL (0-200); HDL Direct 39 mg/dL; Triglycerides 79 mg/dL (<150)
[2021-01-31 09:10] LABS: LDL Cholesterol Direct 52 mg/dL
== END 2021-01-31 08:31 | disposition home or self-care (01) ==
PROVIDERS: PCP Family Medicine; Visit Provider Family Medicine
DX: E78.5 Hyperlipidemia, unspecified (principal)
CPT/HCPCS: 36415; 80061

== ENCOUNTER 2021-02-03 03:07 | Emergency (ER) | payer BC, SELFPAY ==
--- NOTE | ~2021-02-03 | XR_ITS ---
EXAMINATION: XR chest 1V portable DATE: 02/03/2021 03:36 INDICATION: Chest fluttering. TECHNIQUE: A single frontal view of the chest was obtained. COMPARISON: Chest single view 09/16/2020, chest CT 09/16/2020 FINDINGS: There are airspace opacities in left midlung zone. No pleural effusion or pneumothorax. The heart size is normal. IMPRESSION: 1. Airspace opacities in left midlung zone, consistent with atelectasis versus pneumonia. Reviewed, dictated and finalized at location A.
[2021-02-03 03:06] VITALS: BP 147/94; PULSE 76; RESP 17; O2SAT 100
--- NOTE | 2021-02-03 03:12 | ECG_ITS ---
Measurements Intervals [place] Rate: 70 P: 48 [place]: 166 QRS: 6 QRSD: 94 T: 62 QT: 391 QTc: 424 Interpretive Statements SINUS RHYTHM LOW QRS VOLTAGE IN PRECORDIAL LEADS ANTERIOR INFARCT, AGE INDETERMINATE BASELINE ARTIFACT- II, III, AVF, V1 ABNORMAL ECG Electronically Signed On 02-03-2021 7:15:11 CDT by Derrell Nelson D.O.
[2021-02-03 03:14] VITALS: O2SAT 100
[2021-02-03 03:42] LABS: Basophils Absolute Auto 0.1 K/mm3 (0.0-0.1); Basophils Percent Auto 1.1 % (0.2-1.2); Eosinophils Absolute Auto 0.3 K/mm3 (0-0.3); Eosinophils Percent Auto 3.4 % (0-4.4); Hematocrit 40.1 % (37.0-47.0); Hemoglobin 13.5 g/dL (12.0-15.0); Immature Granulocyte Absolute 0.02 K/mm3 (0.00-0.031); Immature Granulocyte Percent A 0.2 % (0-0.5); Lymphocytes Absolute Auto 4.59 K/mm3 (0.9-3.2); Lymphocytes Percent Auto 53.9 % (18.3-44.2); Mean Corpuscular HGB Conc 33.7 g/dl (32-36); Mean Corpuscular Hemoglobin 31.9 pg (26-34); Mean Corpuscular Volume 94.8 fl (80-100); Mean Platelet Volume 10.2 fl (7.4-10.4); Monocytes Absolute Auto 0.5 K/mm3 (0.1-0.6); Monocytes Percent Auto 6.3 % (2.6-8.5); Neutrophils Percent Auto 35.1 % (45.5-73.1); Platelet Count Result 261 k/mm3 (150-375); Red Blood Count 4.23 M/mm3 (4.2-5.4); Red Cell Distribution Width 12.3 % (11.5-14.5); White Blood Count 8.5 K/mm3 (4.5-10.0)
[2021-02-03 03:46] LABS: Alanine Aminotransferase 33 U/L (4-35); Albumin Level 4.4 g/dL (3.5-5.1); Alkaline Phosphatase 113 U/L (38-126); Anion Gap 8 mmol/L (8-16); Aspartate Amino Transferase 24 U/L (14-36); Bilirubin,Total 0.2 mg/dL (0.2-1.3); Blood Urea Nitrogen 25 mg/dL (7-17); Calcium 9.4 mg/dL (8.4-10.2); Carbon Dioxide 25 mmol/L (22-30); Chloride 107 mmol/L (98-107); Estimated CRCL calculation 88 ml/min; Estimated Glomerular Filt Rate > 60; Glucose 105 mg/dL (65-105); Potassium 3.9 mmol/L (3.4-5.0); Sodium 140 mmol/L (137-145)
[2021-02-03 03:58] LABS: Troponin I < 0.012 ng/mL (0.000-0.034)
--- NOTE | 2021-02-03 04:07 | ED.GENADULT ---
HPI - General Adult General Chief complaint: Chest Pain Stated complaint: cp/sob Time Seen by Provider: 02/03/21 03:12 History of Present Illness HPI narrative: Patient is a 50-year-old female who presents ER with concerns of fluttering in her chest. She she reports the fluttering is a quiver that is deep in her chest. She has been noticing it intermittently over the last week to 10 days. She did mention it to her PCP. There is no sharp pain or pressure. This is not similar to her previous MIs. Patient had an LAD stent and 2 RCA stents placed in June 2020. Patient reports night she went to the bathroom and when she walked back to her bed she know she was short of breath and was experiencing the quivering feeling. She reports she feels this discomfort whenever she is at rest and not when she is exerting herself. Improved with nitroglycerin. Has tried taking her pulse when this occurs and cannot tell if she is skipping a beat. Her heart rate has been persistently bradycardic at home. She does take metoprolol. Related Data Home Medications Medication Instructions Recorded Confirmed metoprolol succinate 12.5 mg PO HS 06/29/20 01/31/21 Allergies Allergy/AdvReac Type Severity Reaction Status Date / Time No Known Allergies Allergy Mild Verified 02/03/21 03:14 Review of Systems Review of Systems: All systems reviewed & are unremarkable except as noted in HPI and below Constitutional: Constitutional: Denies chills, Denies fever(s) and Denies weakness ENT: Denies nasal congestion and Denies sore throat Cardiovascular: Cardiovascular: Denies chest pain, Denies rapid heart rate and Denies radiating jaw, neck or arm pain Comments: Fluttering/quivering Respiratory: Respiratory: Denies cough and Denies dyspnea Gastrointestinal: Gastrointestinal: Denies abdominal pain, Denies nausea and Denies vomiting [facility] Past Medical History Medical History Asthma Diabetes mellitus Hyperlipidemia STEMI (ST elevation myocardial infarction) Surgical History Surgical History No pertinent past surgical history Stented coronary artery 1 stent to LDA and 2 stents to RCA Family History Family History Mother Coronary artery disease Hypertension Cerebrovascular accident Cervical cancer Father Diabetes mellitus Coronary artery disease Congestive heart failure Hypertension Social History Social History Social History: Smoking packs per day: 1 Smoking cigarettes per day: 20.0 Years smoked: 36 Smoking pack-years: 36.00 Smoking status: Former smoker Tobacco type: cigarettes Second hand tobacco smoke exposure: No Smoking end date: 06/24/20 Alcohol intake: never Substance use: never Substance use type: does not use Additional living arrangements comments: pt lives with her daughter Gender identity (if verbalized by the patient): Female Spiritual care concerns: No Exam Narrative: Exam Narrative: GENERAL: Well-appearing, well-nourished, and in no acute distress. HEAD: Normocephalic, atraumatic. CHEST: Clear to auscultation. No respiratory distress. HEART: Bradycardic and regular. Normal peripheral pulses. ABDOMEN: Soft, nontender, nondistended. EXTREMITIES: Normal range of motion. No edema. SKIN: Warm, dry, no rash. NEURO: Alert and oriented x3. PSYCH: Normal mood and affect. Course Course Emergency Course: Discussed case with Dr. Gallegos. Patient has been bradycardic in the 40s and 50s. She will be able to get her heart rate up into the 70s. It is thought that patient's palpitations are when she has PACs during her episodes of bradycardia. She reports is only occurring at night after she takes her metoprolol. Dr. Gallegos will have [facility]
[2021-02-03 05:46] VITALS: BP 142/79; PULSE 48; RESP 16; O2SAT 100
[2021-02-03 06:23] LABS: Troponin I < 0.012 ng/mL (0.000-0.034)
[2021-02-03 07:03] VITALS: BP 121/73; PULSE 48; RESP 16; TEMP 36.4; O2SAT 100
== END 2021-02-03 07:04 | disposition home or self-care (01) ==
PROVIDERS: Emergency Provider Emergency Medicine; PCP Family Medicine
DX: R00.2 Palpitations (principal); I49.1 Atrial premature depolarization; I25.2 Old myocardial infarction; E78.5 Hyperlipidemia, unspecified; E11.9 Type 2 diabetes mellitus without complications; J45.909 Unspecified asthma, uncomplicated; Z87.891 Personal history of nicotine dependence; Z95.5 Presence of coronary angioplasty implant and graft; Z79.82 Long term (current) use of aspirin; Z79.84 Long term (current) use of oral hypoglycemic drugs
CPT/HCPCS: 36415; 71045; 80053; 84484; 85025; 93005; 99284

== ENCOUNTER 2021-07-24 09:13 | Outpatient (CLI) | payer BC, SELFPAY ==
[2021-07-24 09:26] LABS: Basophils Absolute Auto 0.1 K/mm3 (0.0-0.1); Basophils Percent Auto 1.2 % (0.2-1.2); Eosinophils Absolute Auto 0.2 K/mm3 (0-0.3); Eosinophils Percent Auto 2.8 % (0-4.4); Hematocrit 39.3 % (37.0-47.0); Hemoglobin 13.4 g/dL (12.0-15.0); Immature Granulocyte Absolute 0.03 K/mm3 (0.00-0.031); Immature Granulocyte Percent A 0.4 % (0-0.5); Lymphocytes Absolute Auto 2.66 K/mm3 (0.9-3.2); Mean Corpuscular HGB Conc 34.1 g/dl (32-36); Mean Corpuscular Hemoglobin 32.4 pg (26-34); Mean Corpuscular Volume 95.2 fl (80-100); Mean Platelet Volume 9.5 fl (7.4-10.4); Monocytes Absolute Auto 0.6 K/mm3 (0.1-0.6); Monocytes Percent Auto 7.8 % (2.6-8.5); Neutrophils Absolute Auto 4.2 K/mm3 (1.3-6.7); Neutrophils Percent Auto 53.8 % (45.5-73.1); Platelet Count Result 269 k/mm3 (150-375); Red Blood Count 4.13 M/mm3 (4.2-5.4); White Blood Count 7.8 K/mm3 (4.5-10.0)
[2021-07-24 09:42] LABS: Alanine Aminotransferase 34 U/L (4-35); Albumin Level 4.5 g/dL (3.5-5.1); Alkaline Phosphatase 85 U/L (38-126); Anion Gap 8 mmol/L (8-16); Aspartate Amino Transferase 24 U/L (14-36); Bilirubin,Total 0.4 mg/dL (0.2-1.3); Blood Urea Nitrogen 22 mg/dL (7-17); Calcium 9.4 mg/dL (8.4-10.2); Carbon Dioxide 27 mmol/L (22-30); Chloride 107 mmol/L (98-107); Estimated Glomerular Filt Rate > 60; Glucose 87 mg/dL (65-110); Potassium 4.6 mmol/L (3.4-5.0); Sodium 142 mmol/L (137-145)
[2021-07-24 09:51] LABS: Hemoglobin A1C 5.5 % (<5.7)
[2021-07-24 10:12] LABS: Thyroid Stimulating Hormone 0.942 uIU/mL (0.465-4.680)
[2021-07-24 11:29] LABS: Free T4 Free Thyroxine 0.96 ng/mL (0.78-2.19)
== END 2021-07-24 09:14 | disposition home or self-care (01) ==
PROVIDERS: PCP Family Medicine; Visit Provider Physician Assistant
DX: E11.9 Type 2 diabetes mellitus without complications (principal); E78.00 Pure hypercholesterolemia, unspecified; E78.5 Hyperlipidemia, unspecified; R49.0 Dysphonia; E03.9 Hypothyroidism, unspecified; I10 Essential (primary) hypertension
CPT/HCPCS: 36415; 80053; 83036; 84439; 84443; 85025

== ENCOUNTER 2021-10-05 00:02 | Day surgery (SDC) | payer BC, SELFPAY ==
[2021-09-20 13:22] VITALS: BMI 30.9
--- NOTE | 2021-10-04 13:41 | PM.HPGS ---
History of Present Illness History of Present Illness Consent: Risks, benefits, and alternatives have been discussed and questions answered. Patient agrees to proceed with procedure. Chief complaint: GERD, neoplasm screening Narrative: Maggy Ojeda is a 51 year old female who has lately been suffering from hoarseness. Also she has had intermittent dysphagia or choking sensation when eating bread or meat, or rice. this has been going on for about 2 years and has been progressively more frequent. She has in the past had problems with acid reflux but rarely needs to take anything for that now. she is due for colon cancer screening. Review of Systems Review of Systems: All systems reviewed & are unremarkable except as noted in HPI and below PMFSH Past Medical History Medical History Asthma Diabetes mellitus GERD (gastroesophageal reflux disease) Hyperlipidemia STEMI (ST elevation myocardial infarction) Surgical History Surgical History Stented coronary artery 1 stent to LDA and 2 stents to RCA Family History Family History Mother Coronary artery disease Hypertension Cerebrovascular accident Cervical cancer Father Diabetes mellitus Coronary artery disease Congestive heart failure Hypertension Social History Social History Social History: Smoking packs per day: 1 Smoking cigarettes per day: 20.0 Years smoked: 36 Smoking pack-years: 36.00 Smoking status: Former smoker Tobacco type: cigarettes Second hand tobacco smoke exposure: No Smoking end date: 06/24/20 Alcohol intake: never Substance use: never Substance use type: does not use Living arrangements: with family Additional living arrangements comments: pt lives with her daughter Gender identity (if verbalized by the patient): Female Sexual Orientation (if Verbalized by the Patient): Straight or Heterosexual Spiritual care concerns: No Meds Home Medications and Allergies Home Medications Medication Instructions Recorded Confirmed Type Brilinta 90 mg BYMOUTH BID #60 tablet 06/26/20 09/20/21 Rx aspirin [Children's Aspirin] 81 mg BYMOUTH DAILY #100 tablet 06/26/20 09/20/21 Rx atorvastatin 40 mg tablet 40 mg BYMOUTH DAILY #30 tablet 03/01/21 11/24/21 Rx Allergies Allergy/AdvReac Type Severity Reaction Status Date / Time No Known Allergies Allergy Mild Verified 10/05/21 06:23 Exam Const: General: alert Orientation/consciousness: patient oriented x3 Resp: Auscultation: clear to auscultation bilaterally Cardio: Rhythm: regular rhythm GI: GI Palp: Yes Soft to palpation and No Tenderness to palpation present (GI) Neuro: General: patient oriented x3 Assessment and Plan Assessment and plan (1) Dysphagia: Code(s): R13.10 - Dysphagia, unspecified Status: Acute Assessment and Plan: EGD with possible biopsy or dilatation or cautery. (2) Colon cancer screening: Code(s): Z12.11 - Encounter for screening for malignant neoplasm of colon Status: Acute Assessment and Plan: Colonoscopy with possible biopsy or polypectomy or cautery or injection of substances.
[2021-10-05 06:25] VITALS: BP 129/73; PULSE 56; RESP 18; TEMP 36.4; O2SAT 98
[2021-10-05] MEDS: LACTATED RINGERS 1,000 ML 150 ML IV CONT (06:33)
--- NOTE | 2021-10-05 07:12 | P.PNAN_ITS ---
Anes - Initial Pre Proc Eval Procedure: Operation Date: 10/05/21 07:30 Proposed Procedures p Esophagogastroduodenoscopy & Screening Colonoscopy - Aris Lynne MD Date/Time: 10/05/21 07:12 Surgeon: Aris Lynne MD Pre Op Diagnosis: GERD, neoplasm screening Patient Data Age: 51 Gender: F Height: 1.75 m Weight: 97.3 kg Last Vital Signs Temp 36.4 C L 10/05/21 06:25 Pulse 56 L 10/05/21 06:25 Resp 18 10/05/21 06:25 BP 129/73 10/05/21 06:25 Pulse Ox 98 10/05/21 06:25 Allergies Allergy/AdvReac Type Severity Reaction Status Date / Time No Known Allergies Allergy Mild Verified 10/05/21 06:23 Home Medications Medication Instructions Recorded Confirmed Type Brilinta 90 mg BYMOUTH BID #60 tablet 06/26/20 09/20/21 Rx aspirin [Children's Aspirin] 81 mg BYMOUTH DAILY #100 tablet 06/26/20 09/20/21 Rx atorvastatin 40 mg tablet 40 mg BYMOUTH DAILY #30 tablet 12/26/20 09/20/21 Rx Patient hx anesthesia problems: none Family hx anesthesia problems: none Results Review: All pre-operative results and documents have been reviewed as part of the pre-operative evaluation. [facility]LY [facility], [facility] Past Medical History Medical History Asthma Diabetes mellitus GERD (gastroesophageal reflux disease) Hyperlipidemia STEMI (ST elevation myocardial infarction) Surgical History Surgical History Stented coronary artery 1 stent to LDA and 2 stents to RCA Family History Family History Mother Coronary artery disease Hypertension Cerebrovascular accident Cervical cancer Father Diabetes mellitus Coronary artery disease Congestive heart failure Hypertension Social History Social History Social History: Smoking packs per day: 1 Smoking cigarettes per day: 20.0 Years smoked: 36 Smoking pack-years: 36.00 Smoking status: Former smoker Tobacco type: cigarettes Second hand tobacco smoke exposure: No Smoking end date: 06/24/20 Alcohol intake: never Substance use: never Substance use type: does not use Living arrangements: with family Additional living arrangements comments: pt lives with her daughter Gender identity (if verbalized by the patient): Female Sexual Orientation (if Verbalized by the Patient): Straight or Heterosexual Spiritual care concerns: No Anes - Eval Final PreProcedure Day of Procedure 10/05/21 07:12 Patient weight: obese Heart: regular rate and rhythm Lungs: clear to auscultation Airway: Mallampati scale class II Neurological: alert and oriented Last oral intake: >/= 8 hours ASA classification: III Emergent: no Anesthetic plan: proceed Anesthesia type and monitoring: general GIVS and standard monitoring Results Review: All pre-operative results and documents have been reviewed as part of the pre-operative evaluation. Informed Consent: The patient's anesthetic plan and its attendant risks and benefits were discussed with the patient/family/POA. Questions were solicited and answers provided to the satisfaction of the patient/family/
--- NOTE | 2021-10-05 08:07 | SUR.OPER ---
EGD start 734 end 743, Colonoscopy start 0751 end at 0805.
[2021-10-05 08:08] VITALS: BP 89/56; PULSE 56; RESP 20; O2SAT 100
[2021-10-05 08:18] VITALS: BP 98/58; PULSE 49; RESP 13; O2SAT 100
[2021-10-05 08:28] VITALS: BP 112/70; PULSE 50; RESP 13; O2SAT 100
== END 2021-10-05 08:41 | disposition home or self-care (01) ==
PROVIDERS: PCP Family Medicine; Visit Provider Internal Medicine Gastroenterology
PROC: 0DJ08ZZ Inspection of Upper Intestinal Tract, Via Natural or Artificial Opening Endoscopic (ICD-10-PCS; CPT 43235; principal; 2021-10-05 07:30)
DX: Z12.11 Encounter for screening for malignant neoplasm of colon (principal); K63.5 Polyp of colon; K57.30 Diverticulosis of large intestine without perforation or abscess without bleeding; K22.2 Esophageal obstruction; K29.71 Gastritis, unspecified, with bleeding; E78.5 Hyperlipidemia, unspecified; I25.2 Old myocardial infarction; J45.909 Unspecified asthma, uncomplicated; K21.9 Gastro-esophageal reflux disease without esophagitis; E11.9 Type 2 diabetes mellitus without complications; Z79.84 Long term (current) use of oral hypoglycemic drugs; Z79.01 Long term (current) use of anticoagulants; Z95.5 Presence of coronary angioplasty implant and graft; Z87.891 Personal history of nicotine dependence; E66.9 Obesity, unspecified; Z68.31 Body mass index [BMI] 31.0-31.9, adult
CPT/HCPCS: 45380; 43249; 43239; 87081; 88305; C1726; J2704; J7120

== ENCOUNTER 2022-01-19 16:53 | Outpatient (CLI) | payer BC, SELFPAY ==
[2022-01-19 17:19] LABS: Anion Gap 7 mmol/L (8-16); Blood Urea Nitrogen 20 mg/dL (7-17); Carbon Dioxide 28 mmol/L (22-30); Chloride 103 mmol/L (98-107); Estimated Glomerular Filt Rate > 60; Glucose 101 mg/dL (65-110); Potassium 4.3 mmol/L (3.4-5.0); Sodium 138 mmol/L (137-145)
== END 2022-01-19 16:54 | disposition home or self-care (01) ==
LOC: ANHLAB 16:56
PROVIDERS: PCP Family Medicine; Visit Provider Internal Medicine Cardiovascular Disease
DX: I25.10 Atherosclerotic heart disease of native coronary artery without angina pectoris (principal); I25.2 Old myocardial infarction; R79.89 Other specified abnormal findings of blood chemistry
CPT/HCPCS: 36415; 80048

== ENCOUNTER 2022-01-23 02:25 | Emergency (ER) | payer BC, SELFPAY ==
--- NOTE | ~2022-01-23 | XR_ITS ---
EXAMINATION: XR chest 1V portable DATE: 01/23/2022 03:15 INDICATION: Chest pain TECHNIQUE: frontal view of the chest was obtained. COMPARISON: Chest radiograph dated 02/03/2021 FINDINGS: A few scattered small calcified pulmonary nodules and calcified right hilar lymph nodes consistent wi th old granulomatous disease. No focal airspace opacities, pulmonary edema, pleural effusion or pneum othorax. The cardiomediastinal silhouette is normal. Visualized bones and soft tissues are unremarkab le. IMPRESSION: 1. No acute cardiopulmonary disease. Reviewed, dictated and finalized at location A.
[2022-01-23 02:32] VITALS: BP 140/71; PULSE 95; RESP 14; TEMP 36.6; O2SAT 100
[2022-01-23 02:40] VITALS: BP 140/71; PULSE 59; RESP 15; TEMP 36.7; O2SAT 100
--- NOTE | 2022-01-23 02:41 | ECG_ITS ---
Measurements Intervals [place] Rate: 51 P: 30 ID: 142 QRS: 26 QRSD: 94 T: -12 QT: 418 QTc: 387 Interpretive Statements SINUS BRADYCARDIA LOW QRS VOLTAGE NONSPECIFIC T-WAVE ABNORMALITY ABNORMAL ECG COMPARED TO ECG 02/03/2021 03:10:23 SMALL R-WAVES ARE NOW SEEN IN THE ANTERIOR LEADS Electronically Signed On 01-23-2022 17:13:53 CDT by Isidro Gaston M.D.
--- NOTE | 2022-01-23 03:09 | ED.GENADULT ---
HPI - General Adult General Chief complaint: Chest Pain Stated complaint: CP WITH LEFT ARM NUMBNESS Time Seen by Provider: 01/23/22 02:28 History of Present Illness HPI narrative: Patient is a 51-year-old female presents to emergency department with chief complaint of chest pain. Patient reports she has history of cardiac diseases had a prior RI and prior stents patient. The patient reports she woke up from sleep having pain in the middle portion of her chest the patient states she had a tingling sensation in her left arm reports she got short of breath with the symptoms as well. Patient reports this feels different from whenever she had her heart attack is at that time the pain would not resolve the patient states it is gradually easing up as she has arrived to the emergency department the patient states that she took some nitroglycerin that was of a undetermined age and may have been Related Data Allergies Allergy/AdvReac Type Severity Reaction Status Date / Time No Known Allergies Allergy Mild Verified 01/23/22 02:45 Review of Systems Review of Systems: A 10 system review of systems was completed on the patient and is negative except for what is stated in the HPI. Nursing and ancillary documentation was reviewed. [facility] Past Medical History Medical History Asthma Diabetes mellitus GERD (gastroesophageal reflux disease) Hyperlipidemia STEMI (ST elevation myocardial infarction) Surgical History Surgical History Stented coronary artery 1 stent to LDA and 2 stents to RCA Family History Family History Mother Coronary artery disease Hypertension Cerebrovascular accident Cervical cancer Father Diabetes mellitus Coronary artery disease Congestive heart failure Hypertension Social History Social History Social History: Smoking packs per day: 1 Smoking cigarettes per day: 20.0 Years smoked: 36 Smoking pack-years: 36.00 Smoking status: Former smoker Tobacco type: cigarettes Second hand tobacco smoke exposure: No Smoking end date: 06/24/20 Alcohol intake: never Substance use: never Substance use type: does not use Additional living arrangements comments: pt lives with her daughter Gender identity (if verbalized by the patient): Female Sexual Orientation (if Verbalized by the Patient): Straight or Heterosexual Spiritual care concerns: No Exam Narrative: GENERAL: Well-appearing, well-nourished, and in no acute distress. HEAD: Normocephalic, atraumatic. EYES: PERRLA and EOMI. ENT: Nares clear, no rhinorrhea or epistaxis. Mucous membranes moist. NECK: Supple. CHEST: Clear to auscultation. No respiratory distress. HEART: Regular rate and rhythm. No murmur heard. Normal peripheral pulses. ABDOMEN: Soft, nontender, nondistended, normal active bowel sounds. EXTREMITIES: Normal range of motion. No edema. SKIN: Warm, dry, no rash. NEURO: No focal deficits. Alert and oriented x3. PSYCH: Normal mood and affect. Course Course Emergency Course: EKG sinus bradycardia rate of [address] elevation or ST depression Vital Signs Vital signs: Vital Signs Temperature 36.6 C 01/23/22 02:32 Pulse Rate 95 01/23/22 02:32 Respiratory Rate 14 01/23/22 02:32 Blood Pressure 140/71 01/23/22 02:32 Pulse Oximetry 100 01/23/22 02:32 Temperature 36.7 C 01/23/22 02:40 Pulse Rate 55 L 01/23/22 06:37 Respiratory Rate 16 01/23/22 06:37 Blood Pressure 119/65 01/23/22 05:08 Pulse Oximetry 98 01/23/22 06:37 Medical Decision Making Vital Signs Vital Signs: Vital Signs Temperature 36.6 C 01/23/22 02:32 Pulse Rate 95 01/23/22 02:32 Respiratory Rate 14 01/23/22 02:32 Blood Pressure 140/7
[2022-01-23 04:09] LABS: Basophils Absolute Auto 0.1 K/mm3 (0.0-0.1); Basophils Percent Auto 0.9 % (0.2-1.2); Eosinophils Absolute Auto 0.2 K/mm3 (0-0.3); Eosinophils Percent Auto 2.8 % (0-4.4); Hematocrit 37.8 % (37.0-47.0); Hemoglobin 12.7 g/dL (12.0-15.0); Immature Granulocyte Absolute 0.02 K/mm3 (0.00-0.031); Immature Granulocyte Percent A 0.3 % (0-0.5); Lymphocytes Absolute Auto 2.61 K/mm3 (0.9-3.2); Lymphocytes Percent Auto 38.8 % (18.3-44.2); Mean Corpuscular HGB Conc 33.6 g/dl (32-36); Mean Corpuscular Hemoglobin 32.2 pg (26-34); Mean Corpuscular Volume 95.9 fl (80-100); Mean Platelet Volume 10.1 fl (7.4-10.4); Monocytes Absolute Auto 0.5 K/mm3 (0.1-0.6); Neutrophils Absolute Auto 3.3 K/mm3 (1.3-6.7); Neutrophils Percent Auto 49.2 % (45.5-73.1); Platelet Count Result 260 k/mm3 (150-375); Red Blood Count 3.94 M/mm3 (4.2-5.4); Red Cell Distribution Width 12.1 % (11.5-14.5); White Blood Count 6.7 K/mm3 (4.5-10.0)
[2022-01-23 04:18] LABS: Add Urine Microscopic? YES; Appearance Urine Clear (Clear); Bacteria Urine Trace /hpf; Bilirubin Urine Negative (Negative); Blood Urine 1+ (Negative); Color Urine Straw (Yellow); Glucose Urine UA Negative (Negative); Ketones Urine Negative (Negative); Leukocyte Esterase Ur Trace LEU/UL (Negative); Mucus Urine Rare /lpf; Nitrate Urine Negative (Negative); Protein Urine Negative (Negative); RBC Urine 0-2 /hpf (0-2); Specific Grav Ur 1.011 (1.001-1.035); Squamous Epithelial Cell Urine Rare /hpf (Few); Urobilinogen Urine Negative mg/dL (<2.0)
[2022-01-23 04:21] LABS: Prothrombin Time 12.7 Seconds (11.1-14.7)
[2022-01-23 04:22] LABS: Partial Thromboplastin Time 34.3 SECONDS (22.3-36.8)
--- NOTE | 2022-01-23 04:35 | PC.NURSE ---
Patient states pain is much better and has no requests at this time.
[2022-01-23 04:36] LABS: Alanine Aminotransferase 28 U/L (4-35); Albumin Level 4.3 g/dL (3.5-5.1); Alkaline Phosphatase 100 U/L (38-126); Anion Gap 9 mmol/L (8-16); Aspartate Amino Transferase 29 U/L (14-36); Bilirubin,Total 0.3 mg/dL (0.2-1.3); Blood Urea Nitrogen 27 mg/dL (7-17); Calcium 8.8 mg/dL (8.4-10.2); Carbon Dioxide 24 mmol/L (22-30); Chloride 105 mmol/L (98-107); Estimated CRCL calculation 87 ml/min; Estimated Glomerular Filt Rate > 60; Glucose 124 mg/dL (65-110); Lipase 113 U/L (23-300); Potassium 3.8 mmol/L (3.4-5.0); Sodium 138 mmol/L (137-145)
[2022-01-23 04:46] LABS: NT Pro B Type Natriuretic Pept 269 pg/mL (5-100)
[2022-01-23 04:48] LABS: Troponin I < 0.012 ng/mL (0.000-0.034)
[2022-01-23 05:08] VITALS: BP 119/65; PULSE 60; RESP 16; O2SAT 98
[2022-01-23 06:37] VITALS: PULSE 55; RESP 16; O2SAT 98
[2022-01-23 06:55] LABS: Troponin I < 0.012 ng/mL (0.000-0.034)
[2022-01-23 07:08] VITALS: BP 107/72; PULSE 72; RESP 16; O2SAT 99
== END 2022-01-23 07:11 | disposition home or self-care (01) ==
PROVIDERS: Emergency Provider Emergency Medicine; PCP Family Medicine
DX: R07.89 Other chest pain (principal); I25.2 Old myocardial infarction; J45.909 Unspecified asthma, uncomplicated; E11.9 Type 2 diabetes mellitus without complications; E78.5 Hyperlipidemia, unspecified; K21.9 Gastro-esophageal reflux disease without esophagitis; Z95.5 Presence of coronary angioplasty implant and graft; Z87.891 Personal history of nicotine dependence; Z79.82 Long term (current) use of aspirin; R00.1 Bradycardia, unspecified; R94.31 Abnormal electrocardiogram [ECG] [EKG]
CPT/HCPCS: 36415; 71045; 80053; 81001; 83690; 83880; 84484; 85025; 85610; 85730; 93005; 99284

== ENCOUNTER 2022-01-26 12:41 | Outpatient (CLI) | payer BC, SELFPAY ==
--- NOTE | 2022-01-26 | ECHO_ITS ---
Patient Info Name: Maggy Ojeda Age: 51 years : 1970 Gender: Female Ht: 69 in Wt: 215 lbs BSA: 2.21 m2 HR: 49 bpm BP: 107 / 69 mmHg Technical Quality: Good Exam Date: 01/26/2022 1:23 PM Exam Location: [facility] Patient Status: Outpatient Admit Date: 01/26/2022 Staff Ordering Physician: Perry Shipley MD Store Worker: Ann Marie Morgan RDCS Attending Provider: Perry Shipley MD Referring Physician: Quinten LYN; Exam Type: CA echo doppler color flow Study Info Indications - stemi cad elevated troponins Complete two-dimensional, color flow and Doppler transthoracic echocardiogram is performed. Summary 1. Complete two-dimensional, color flow and Doppler transthoracic echocardiogram is performed. 2. Left ventricular systolic function is normal, estimated at 50-55%.Hypokinesis of mid and apical septum. 3. The left ventricular diastolic function is indeterminate. 4. Global longitudinal strain is normal at -18 %. 5. Left atrial chamber dimension is mildly enlarged. 6. There is trace mitral valve regurgitation. 7. There is mild to moderate tricuspid valve regurgitation. 8. No pulmonary hypertension, estimated pulmonary arterial systolic pressure is 31 mmHg. Left Ventricle Left ventricular chamber dimension is normal. Left ventricular systolic function is normal, estimated at 50-55%.Hypokinesis of mid and apical septum. There is no increased left ventricular wall thickness. Left ventricular septal wall motion is normal. The left ventricular diastolic function is indeterminate. Global longitudinal strain is normal at -18 %. Right Ventricle Right ventricular chamber dimension is normal. Right ventricular systolic function is normal. Left Atria Left atrial chamber dimension is mildly enlarged. Right Atria Right atrial chamber dimension is normal. Atrial Septum normal. Aortic Valve The aortic valve is trileaflet. There is no aortic valve sclerosis. There is no aortic valve stenosis. There is no aortic valve regurgitation. Pulmonic Valve The pulmonic valve is normal. There is no pulmonic valve stenosis. There is no pulmonic regurgitation. Mitral Valve The mitral valve has normal leaflets. There is no mitral valve stenosis. There is trace mitral valve regurgitation. Tricuspid Valve The tricuspid valve leaflets are normal. There is no significant tricuspid valve stenosis. There is mild to moderate tricuspid valve regurgitation. No pulmonary hypertension, estimated pulmonary arterial systolic pressure is 31 mmHg. Pericardium/Pleural The pericardium appears normal. There is no pericardial effusion. Inferior Vena Cava Dilated inferior vena cava with >50% collapse upon inspiration consistent with Empty right atrial pressure, 10 mmHg. Aorta The aortic root size at the sinus of Valsalva is normal. The prox ascending aorta size is normal. Left Ventricular Outflow Tract Name Value Normal LVOT 2D LVOT Diameter 2.0 cm LVOT Doppler LVOT Peak Gradient 6 mmHg LVOT Mean Gradient 3 mmHg LVOT
== END 2022-01-26 12:42 | disposition home or self-care (01) ==
LOC: ANHCARD 12:43
PROVIDERS: PCP Family Medicine; Visit Provider Internal Medicine Cardiovascular Disease
DX: I25.10 Atherosclerotic heart disease of native coronary artery without angina pectoris (principal); I25.2 Old myocardial infarction; R79.89 Other specified abnormal findings of blood chemistry
CPT/HCPCS: 93306

== ENCOUNTER 2022-03-01 00:25 | Day surgery (SDC) | payer BC, SELFPAY ==
[2022-02-22 09:18] VITALS: BMI 32.5
--- NOTE | 2022-02-28 14:18 | PM.HPGS ---
History of Present Illness History of Present Illness Consent: Risks, benefits, and alternatives have been discussed and questions answered. Patient agrees to proceed with procedure. Chief complaint: Dysphagia Narrative: Maggy Ojeda is a 51 year old female With dysphagia for solid food. She is known to have a history of esophageal stricture, last dilated last September Review of Systems Review of Systems: All systems reviewed & are unremarkable except as noted in HPI and below PMFSH Past Medical History Medical History Asthma Diabetes mellitus GERD (gastroesophageal reflux disease) Hyperlipidemia STEMI (ST elevation myocardial infarction) Surgical History Surgical History Stented coronary artery 1 stent to LDA and 2 stents to RCA Family History Family History Mother Coronary artery disease Hypertension Cerebrovascular accident Cervical cancer Father Diabetes mellitus Coronary artery disease Congestive heart failure Hypertension Social History Social History Social History: Smoking packs per day: 1 Smoking cigarettes per day: 20.0 Years smoked: 36 Smoking pack-years: 36.00 Smoking status: Former smoker Tobacco type: cigarettes Second hand tobacco smoke exposure: No Smoking end date: 06/24/20 Alcohol intake: never Substance use: never Substance use type: does not use Living arrangements: with family Additional living arrangements comments: lives with daughter Gender identity (if verbalized by the patient): Female Sexual Orientation (if Verbalized by the Patient): Straight or Heterosexual Spiritual care concerns: No Meds Home Medications and Allergies Home Medications Medication Instructions Recorded Confirmed Type Brilinta 90 mg BYMOUTH BID #60 tablet 06/26/20 03/01/22 Rx aspirin [Children's Aspirin] 81 mg BYMOUTH DAILY #100 tablet 06/26/20 03/01/22 Rx atorvastatin 40 mg tablet 40 mg BYMOUTH DAILY #30 tablet 12/26/20 03/01/22 Rx omeprazole 40 mg PO DAILY #30 cap 10/05/21 03/01/22 Rx Allergies Allergy/AdvReac Type Severity Reaction Status Date / Time No Known Allergies Allergy Mild Verified 03/01/22 09:36 Exam Const: General: alert Orientation/consciousness: patient oriented x3 Resp: Auscultation: clear to auscultation bilaterally Cardio: Rhythm: regular rhythm GI: GI Palp: Yes Soft to palpation and No Tenderness to palpation present (GI) Neuro: General: patient oriented x3 Assessment and Plan Assessment and plan (1) Dysphagia: Code(s): R13.10 - Dysphagia, unspecified Status: Acute Assessment and Plan: EGD with possible biopsy or dilatation or cautery.
[2022-03-01 09:39] VITALS: BP 111/67; PULSE 57; RESP 16; TEMP 36.4; O2SAT 98
[2022-03-01] MEDS: LACTATED RINGERS 1,000 ML 150 ML IV CONT (09:52)
--- NOTE | 2022-03-01 10:04 | P.PNAN_ITS ---
Anes - Initial Pre Proc Eval Procedure: Operation Date: 03/01/22 10:45 Proposed Procedures p Esophagogastroduodenoscopy - Aris Lynne MD Date/Time: 03/01/22 10:04 Surgeon: Aris Lynne MD Pre Op Diagnosis: Dysphagia Patient Data Age: 51 Gender: F Height: 1.75 m Weight: 102.4 kg Last Vital Signs Temp 36.4 C L 03/01/22 09:39 Pulse 57 L 03/01/22 09:39 Resp 16 03/01/22 09:39 BP 111/67 03/01/22 09:39 Pulse Ox 98 03/01/22 09:39 Allergies Allergy/AdvReac Type Severity Reaction Status Date / Time No Known Allergies Allergy Mild Verified 03/01/22 09:36 Home Medications Medication Instructions Recorded Confirmed Type Brilinta 90 mg BYMOUTH BID #60 tablet 06/26/20 03/01/22 Rx aspirin [Children's Aspirin] 81 mg BYMOUTH DAILY #100 tablet 06/26/20 03/01/22 Rx atorvastatin 40 mg tablet 40 mg BYMOUTH DAILY #30 tablet 12/26/20 03/01/22 Rx omeprazole 40 mg PO DAILY #30 cap 10/05/21 03/01/22 Rx Patient hx anesthesia problems: none Family hx anesthesia problems: none Results Review: All pre-operative results and documents have been reviewed as part of the pre-operative evaluation. [facility] Past Medical History Medical History Asthma Diabetes mellitus GERD (gastroesophageal reflux disease) Hyperlipidemia STEMI (ST elevation myocardial infarction) Surgical History Surgical History Stented coronary artery 1 stent to LDA and 2 stents to RCA Family History Family History Mother Coronary artery disease Hypertension Cerebrovascular accident Cervical cancer Father Diabetes mellitus Coronary artery disease Congestive heart failure Hypertension Social History Social History Social History: Smoking packs per day: 1 Smoking cigarettes per day: 20.0 Years smoked: 36 Smoking pack-years: 36.00 Smoking status: Former smoker Tobacco type: cigarettes Second hand tobacco smoke exposure: No Smoking end date: 06/24/20 Alcohol intake: never Substance use: never Substance use type: does not use Living arrangements: with family Additional living arrangements comments: lives with daughter Gender identity (if verbalized by the patient): Female Sexual Orientation (if Verbalized by the Patient): Straight or Heterosexual Spiritual care concerns: No Anes - Eval Final PreProcedure Day of Procedure 03/01/22 10:04 Patient weight: obese Heart: regular rate and rhythm Lungs: clear to auscultation Airway: Mallampati scale class II Neurological: alert and oriented Last oral intake: >/= 8 hours ASA classification: III Emergent: no Anesthesia type and monitoring: general GIVS and standard monitoring Results Review: All pre-operative results and documents have been reviewed as part of the pre-operative evaluation. Informed Consent: The patient's anesthetic plan and its attendant risks and benefits were discussed with the patient/family/POA. Questions were solicited and answers provided to the satisfaction of the patient/family/POA.
[2022-03-01 10:47] VITALS: BP 93/56; PULSE 52; RESP 16; O2SAT 100
[2022-03-01 10:57] VITALS: BP 106/64; PULSE 45; RESP 24; O2SAT 100
[2022-03-01 11:07] VITALS: BP 117/69; PULSE 43; RESP 19; O2SAT 100
== END 2022-03-01 11:15 | disposition home or self-care (01) ==
PROVIDERS: PCP Family Medicine; Visit Provider Internal Medicine Gastroenterology
PROC: 0DJ08ZZ Inspection of Upper Intestinal Tract, Via Natural or Artificial Opening Endoscopic (ICD-10-PCS; CPT 43235; principal; 2022-03-01 10:45)
DX: R13.10 Dysphagia, unspecified (principal); K22.2 Esophageal obstruction; K44.9 Diaphragmatic hernia without obstruction or gangrene; K21.9 Gastro-esophageal reflux disease without esophagitis; J45.909 Unspecified asthma, uncomplicated; E11.9 Type 2 diabetes mellitus without complications; E78.5 Hyperlipidemia, unspecified; I25.2 Old myocardial infarction; Z95.5 Presence of coronary angioplasty implant and graft; Z87.891 Personal history of nicotine dependence
CPT/HCPCS: 43249; 43239; C1726; J2704; J7120

== ENCOUNTER 2022-10-04 15:40 | Outpatient (CLI) | payer BC, SELFPAY ==
--- NOTE | ~2022-10-04 | XR_ITS ---
EXAMINATION: XR chest 2V 10/04/2022 16:05 INDICATION: Bronchitis PROCEDURE: 2 view chest COMPARISON: Comparison to multiple prior studies sequentially, with oldest reviewed study dated 11/2019. FINDINGS: The lungs are clear. The cardiomediastinal silhouette is within normal limits. There are no pleural effusions. There is no pneumothorax suspected. IMPRESSION: 1: NO ACUTE CARDIOPULMONARY DISEASE. Reviewed, dictated and finalized at location A. AGE ATTENDANT
== END 2022-10-04 15:41 | disposition home or self-care (01) ==
PROVIDERS: PCP Family Medicine; Visit Provider Physician Assistant
DX: J40 Bronchitis, not specified as acute or chronic (principal); R06.00 Dyspnea, unspecified
CPT/HCPCS: 71046

== ENCOUNTER 2022-10-31 08:45 | Emergency (ER) | payer BC, SELFPAY ==
[2022-10-31 08:47] VITALS: PULSE 72; RESP 16; TEMP 36.2; O2SAT 98
--- NOTE | 2022-10-31 09:20 | ECG_ITS ---
Measurements Intervals [place] Rate: 60 P: 34 [place]: 161 QRS: -12 QRSD: 97 T: 56 QT: 385 QTc: 386 Interpretive Statements SINUS RHYTHM DELAYED PRECORDIAL R/S TRANSITION BASELINE ARTIFACT- II, III BORDERLINE ECG COMPARED TO ECG 01/23/2022 02:28:45 SINUS RHYTHM NOW PRESENT Electronically Signed On 10-31-2022 9:34:25 ROLLING MACHINE TENDER by Derrell Nelson D.O.
[2022-10-31 09:35] LABS: Basophils Absolute Auto 0.1 K/mm3 (0.0-0.1); Eosinophils Absolute Auto 0.2 K/mm3 (0-0.3); Eosinophils Percent Auto 2.7 % (0-4.4); Hematocrit 41.4 % (37.0-47.0); Hemoglobin 13.8 g/dL (12.0-15.0); Immature Granulocyte Absolute 0.03 K/mm3 (0.00-0.031); Immature Granulocyte Percent A 0.4 % (0-0.5); Lymphocytes Absolute Auto 2.64 K/mm3 (0.9-3.2); Lymphocytes Percent Auto 33.5 % (18.3-44.2); Mean Corpuscular HGB Conc 33.3 g/dl (32-36); Mean Corpuscular Hemoglobin 31.9 pg (26-34); Mean Corpuscular Volume 95.8 fl (80-100); Mean Platelet Volume 9.5 fl (7.4-10.4); Monocytes Absolute Auto 0.7 K/mm3 (0.1-0.6); Monocytes Percent Auto 8.6 % (2.6-8.5); Neutrophils Absolute Auto 4.2 K/mm3 (1.3-6.7); Neutrophils Percent Auto 53.8 % (45.5-73.1); Platelet Count Result 307 k/mm3 (150-375); Red Blood Count 4.32 M/mm3 (4.2-5.4); Red Cell Distribution Width 12.1 % (11.5-14.5); White Blood Count 7.9 K/mm3 (4.5-10.0)
[2022-10-31 09:45] LABS: Alanine Aminotransferase 30 U/L (6-35); Albumin Level 4.5 g/dL (3.5-5.1); Alkaline Phosphatase 99 U/L (38-126); Anion Gap 6 mmol/L (8-16); Aspartate Amino Transferase 27 U/L (14-36); Bilirubin,Total 0.4 mg/dL (0.2-1.3); Blood Urea Nitrogen 15 mg/dL (7-17); Calcium 8.9 mg/dL (8.4-10.2); Carbon Dioxide 27 mmol/L (22-30); Chloride 101 mmol/L (98-107); Estimated CRCL calculation 107 ml/min; Estimated Glomerular Filt Rate > 60; Glucose 91 mg/dL (65-110); Potassium 4.4 mmol/L (3.4-5.0); Sodium 134 mmol/L (137-145)
[2022-10-31 10:05] VITALS: BP 123/86; BP 127/71; BP 137/89; PULSE 55; PULSE 62; PULSE 67
[2022-10-31 11:06] VITALS: BP 123/89; PULSE 55; RESP 18; O2SAT 97
[2022-10-31] MEDS: SODIUM CHLORIDE 0.9% IV 1,000 ML 999 ML IV CONT (11:30)
[2022-10-31] MEDS: MECLIZINE HCL 25 MG TABLET PO (11:30)
--- NOTE | 2022-10-31 11:58 | ED.GENADULT ---
HPI - General Adult General Chief complaint: Dizziness Stated complaint: dizziness, bp high Time Seen by Provider: 10/31/22 09:32 History of Present Illness HPI narrative: Patient is a 52-year-old female who presents ER with dizziness and elevated blood pressure. Reports has been having positional dizziness over the last day. She was at work and noticed that her blood pressure was in the 200s systolic. This concerned her as her blood pressure is typically 120/80 and she is typically bradycardic. No fevers or chills or sweats no exertional chest discomfort. Has history of OK and takes Brilinta. Related Data Allergies Allergy/AdvReac Type Severity Reaction Status Date / Time No Known Allergies Allergy Mild Verified 10/04/22 15:08 Review of Systems Review of Systems: All systems reviewed & are unremarkable except as noted in HPI and below Constitutional: Constitutional: Denies chills, Denies fatigue and Denies fever(s) ENT: Reports dizziness, Denies nasal congestion and Denies sore throat Cardiovascular: Cardiovascular: Denies chest pain, Denies rapid heart rate and Denies radiating jaw, neck or arm pain Respiratory: Respiratory: Denies cough and Denies dyspnea Gastrointestinal: Gastrointestinal: Denies abdominal pain, Denies nausea and Denies vomiting COUNT INCLUDES THE [facility] Past Medical History Medical History Asthma Diabetes mellitus GERD (gastroesophageal reflux disease) Hyperlipidemia STEMI (ST elevation myocardial infarction) Surgical History Surgical History Stented coronary artery 1 stent to LDA and 2 stents to RCA Family History Family History Mother Coronary artery disease Hypertension Cerebrovascular accident Cervical cancer Father Diabetes mellitus Coronary artery disease Congestive heart failure Hypertension Social History Social History (Updated 10/04/22 @ 15:09 by Liza Jean) Social History: Smoking packs per day: 1 Smoking cigarettes per day: 20.0 Years smoked: 36 Smoking pack-years: 36.00 Smoking status: Former smoker Tobacco type: cigarettes Second hand tobacco smoke exposure: No Smoking end date: 06/24/20 Alcohol intake: never Substance use: never Substance use type: does not use Additional living arrangements comments: lives with daughter Gender identity (if verbalized by the patient): Female Sexual Orientation (if Verbalized by the Patient): Straight or Heterosexual Spiritual care concerns: No Exam Narrative: GENERAL: Well-appearing, well-nourished, and in no acute distress. HEAD: Normocephalic, atraumatic. CHEST: Clear to auscultation. No respiratory distress. HEART: Regular rate and rhythm. Normal peripheral pulses. EXTREMITIES: Normal range of motion. No edema. SKIN: Warm, dry, no rash. NEURO: Alert and oriented x3. Reproducible dizziness when going from lying to sitting. PSYCH: Normal mood and affect. Course Course Emergency Course: Patient feels improved with meclizine and IV fluid. Blood pressure normal while here in the ER. Recommend follow-up with PCP. Vital Signs Vital signs: Vital Signs Temperature 97.1 F L 10/31/22 08:47 Pulse Rate 72 10/31/22 08:47 Respiratory Rate 16 10/31/22 08:47 Pulse Oximetry 98 10/31/22 08:47 Temperature 97.1 F L 10/31/22 08:47 Pulse Rate 55 L 10/31/22 11:06 Respiratory Rate 18 10/31/22 11:06 Blood Pressure 123/89 10/31/22 11:06 Pulse Oximetry 97 10/31/22 11:06 Medical Decision Making Vital Signs Vital Signs: Vital Signs Temperature 97.1 F L 10/31/22 08:47 Pulse Rate 72 10/31/22 08:47 Respiratory Rate 16 10/31/22 08:47 Pulse Oximetry 98 10/31/22 08:47 Temperature 97.1 F L 10/31/22 08:47 Pulse Rate 55 L 10/31/22 11:06 Respiratory Rate 18 10/31/22 11:06 Blood Pressure
[2022-10-31 12:16] VITALS: BP 105/73; PULSE 53; RESP 15; O2SAT 100
== END 2022-10-31 12:45 | disposition home or self-care (01) ==
PROVIDERS: Emergency Provider Emergency Medicine; PCP Family Medicine
DX: R42 Dizziness and giddiness (principal); J45.909 Unspecified asthma, uncomplicated; E11.9 Type 2 diabetes mellitus without complications; E78.5 Hyperlipidemia, unspecified; I25.2 Old myocardial infarction; K21.9 Gastro-esophageal reflux disease without esophagitis; Z95.5 Presence of coronary angioplasty implant and graft; Z87.891 Personal history of nicotine dependence; Z79.82 Long term (current) use of aspirin; Z79.02 Long term (current) use of antithrombotics/antiplatelets; R94.31 Abnormal electrocardiogram [ECG] [EKG]
CPT/HCPCS: 36415; 80053; 85025; 93005; 96360; 99283; A9270; J7030

== ENCOUNTER 2022-12-21 07:57 | Outpatient (CLI) | payer BC, SELFPAY ==
[2022-12-21 09:14] LABS: Cholesterol 159 mg/dL (0-200); HDL Direct 45 mg/dL; Triglycerides 140 mg/dL (<150)
[2022-12-21 09:24] LABS: LDL Cholesterol Direct 76 mg/dL
[2022-12-21 09:27] LABS: Hemoglobin A1C 5.7 % (<5.7)
== END 2022-12-21 07:58 | disposition home or self-care (01) ==
LOC: ANHLAB 07:59
PROVIDERS: PCP Family Medicine; Visit Provider Nurse Practitioner Gerontology
DX: E78.00 Pure hypercholesterolemia, unspecified (principal); R73.09 Other abnormal glucose
CPT/HCPCS: 36415; 80061; 83036

== ENCOUNTER 2023-03-02 17:49 | Emergency (ER) | payer BC, SELFPAY ==
[2023-03-02 17:55] VITALS: BP 157/80; PULSE 62; RESP 16; TEMP 36.3; O2SAT 100
--- NOTE | 2023-03-02 17:55 | ED.GENADULT ---
HPI - General Adult General Chief complaint: Upper Respiratory Infection Stated complaint: COUGHING UP BLOOD S/P +COVID Source: patient and RN notes reviewed History of Present Illness HPI narrative: 52 yo F presents to urgent care with complaints of coughing up blood clots today. Pt states she was dx with Covid 2 weeks ago and has had a productive cough since. Pt reports associated SOB and chest soreness. Pt denies any fevers, chills, significant leg swelling, or leg pain. Pt is on Brilinta. Related Data Allergies Allergy/AdvReac Type Severity Reaction Status Date / Time No Known Allergies Allergy Mild Verified 03/02/23 17:54 Review of Systems Review of Systems: Pertinent positives and pertinent negatives per HPI. [facility] Past Medical History Medical History Asthma Diabetes mellitus GERD (gastroesophageal reflux disease) Hyperlipidemia STEMI (ST elevation myocardial infarction) Surgical History Surgical History Stented coronary artery 1 stent to LDA and 2 stents to RCA Family History Family History Mother Coronary artery disease Hypertension Cerebrovascular accident Cervical cancer Father Diabetes mellitus Coronary artery disease Congestive heart failure Hypertension Social History Social History (Updated 10/04/22 @ 15:09 by Liza Jean) Social History: Smoking packs per day: 1 Smoking cigarettes per day: 20.0 Years smoked: 36 Smoking pack-years: 36.00 Smoking status: Former smoker Tobacco type: cigarettes Second hand tobacco smoke exposure: No Smoking end date: 06/24/20 Alcohol intake: never Substance use: never Substance use type: does not use Living arrangements: with family Additional living arrangements comments: lives with daughter Occupation/Education: occupation Gender identity (if verbalized by the patient): Female Sexual Orientation (if Verbalized by the Patient): Straight or Heterosexual Spiritual care concerns: No Comments At the time of my signature, I reviewed and agree with the nursing past medical, surgical, social, and family history. There is no relevant family history pertinent to the patient complaint. Exam Narrative: GENERAL: This is a well-nourished, well-developed patient, in no apparent distress. HEAD: normocephalic, atraumatic. EYES: Sclera clear/white. Vision is grossly intact. EARS: External ears normal, auditory canals clear and without drainage. Hearing grossly intact. NOSE: External nose normal with no obvious nasal discharge, nares without redness, no rhinorrhea. THROAT: Mucous membranes moist, posterior pharynx clear. CARDIOVASCULAR: Regular rate and rhythm without murmurs, gallops, or rubs. RESPIRATORY: Clear to auscultation. Breath sounds equal bilaterally. No wheezes, rales, or rhonchi. SKIN: warm, intact with no suspicious lesions or rash, good texture and turgor. NEURO: awake, alert, and oriented to person, place and time. There were no obvious focal neurologic abnormalities. EXTREMITIES: No clubbing, cyanosis. No joint tenderness, effusion noted. Mild edema noted to bilateral lower ankles. Course Course Level of Care: Express Care Visit Vital Signs Vital signs: Vital Signs Temperature 97.3 F L 03/02/23 17:55 Pulse Rate 62 03/02/23 17:55 Respiratory Rate 16 03/02/23 17:55 Blood Pressure 157/80 H 03/02/23 17:55 Pulse Oximetry 100 03/02/23 17:55 Temperature 97.3 F L 03/02/23 17:55 Pulse Rate 62 03/02/23 17:55 Respiratory Rate 16 03/02/23 17:55 Blood Pressure 157/80 H 03/02/23 17:55 Pulse Oximetry 100 03/02/23 17:55 reviewed Medical Decision Making MDM Narrative Medical decision making narrative: Reasons for transfer discussed with pt, including rule out PE. Pt agrees to be transferred
== END 2023-03-02 18:09 | disposition short-term general hospital (02) ==
PROVIDERS: Emergency Provider Nurse Practitioner Family; PCP Family Medicine
DX: R04.2 Hemoptysis (principal); E78.5 Hyperlipidemia, unspecified; E11.9 Type 2 diabetes mellitus without complications; J45.909 Unspecified asthma, uncomplicated; I25.2 Old myocardial infarction; Z87.891 Personal history of nicotine dependence
CPT/HCPCS: 99212; G0463

== ENCOUNTER 2023-03-02 18:26 | Emergency (ER) | payer BC, SELFPAY ==
--- NOTE | ~2023-03-02 | CT_ITS ---
EXAMINATION: CTA chest PE protocol DATE: 03/02/2023 19:43 INDICATION: Chest pain. Shortness of breath. Cough. TECHNIQUE: Computed tomography angiography (CTA) of the chest was performed with 100 mL Omnipaque-350 intravenous contrast timed to evaluate the pulmonary arteries. Coronal maximum intensity projection 3D-reconstructions were created by the technologist. Automated exposure control and iterative reconst ruction technique were employed. The dose-length product was 859.93 mGy-cm. COMPARISON: Chest CT 09/16/2020 FINDINGS: There is mild emphysema. Calcified bilateral lung nodules and calcified right hilar lymph n odes are consistent with old granulomatous disease. No pleural effusion. The heart size is normal. No pericardial effusion. There is no pulmonary embolus. There is a small sliding hiatal hernia. Calcifi cations in the liver and spleen are consistent with old granulomatous disease. There is moderate thor acic spondylosis. IMPRESSION: 1. No pulmonary embolus. 2. Mild emphysema. 3. Small sliding hiatal hernia. Reviewed, dictated and finalized at location A.
--- NOTE | 2023-03-02 18:29 | ECG_ITS ---
Measurements Intervals [place] Rate: 71 P: 35 [place]: 176 QRS: -3 QRSD: 91 T: 50 QT: 378 QTc: 412 Interpretive Statements SINUS RHYTHM ATRIAL AND VENTRICULAR PREMATURE COMPLEXES BORDERLINE R WAVE PROGRESSION, ANTERIOR LEADS BORDERLINE ECG COMPARED TO ECG 10/31/2022 09:26:10 NO SIGNIFICANT CHANGES Electronically Signed On 03-02-2023 20:28:26 CDT by Derrell Nelson D.O.
[2023-03-02 18:30] VITALS: BP 128/92; PULSE 71; RESP 19; TEMP 36.7; O2SAT 100
--- NOTE | 2023-03-02 18:40 | ED.SOB ---
HPI - SOB/Dyspnea General Chief Complaint: Shortness of Breath/Dyspnea Stated Complaint: cough Time Seen by Provider: 03/02/23 18:38 Source: patient Mode of arrival: ambulatory Limitations: no limitations History of Present Illness HPI Narrative: Patient is a 52 y/o female who presents to the ED with c/o cough and SOB. Patient reports she was diagnosed with COVID-19 3 weeks ago. She has had a persistent productive cough, congestion, chest congestion, intermittent chest heaviness, mild SOB with exertion since then. She has been taking Mucinex and sudafed without much relief. This morning, she reported that she coughed up a small blood clot and blood-tinged sputum. She went to an urgent care and was referred here for further evaluation. Patient is on Brilinta d/t pmhx of CAD with stenting. She denies any other issues with bleeding. Denies lower extremity pain or swelling. Denies persistent fevers, nausea, vomiting, abdominal pain. Related Data Allergies Allergy/AdvReac Type Severity Reaction Status Date / Time No Known Allergies Allergy Mild Verified 03/02/23 17:54 Review of Systems Review of Systems: CONSTITUTIONAL: Denies fever, chills, or sweats. ENT: See HPI. CARDIOVASCULAR: See HPI. RESPIRATORY: See HPI. GASTROINTESTINAL: Denies abdominal pain, nausea, vomiting, or diarrhea. GENITOURINARY: Denies dysuria or hematuria. SKIN: Denies rash or itching. MUSCULOSKELETAL: Denies back pain, joint pain, or myalgia. NEUROLOGIC: Denies headache, numbness, or weakness. All systems reviewed & are unremarkable except as noted in HPI and below PMFSH Past Medical History Medical History Asthma Diabetes mellitus GERD (gastroesophageal reflux disease) Hyperlipidemia STEMI (ST elevation myocardial infarction) Surgical History Surgical History Stented coronary artery 1 stent to LDA and 2 stents to RCA Family History Family History Mother Coronary artery disease Hypertension Cerebrovascular accident Cervical cancer Father Diabetes mellitus Coronary artery disease Congestive heart failure Hypertension Social History Social History Social History: Smoking packs per day: 1 Smoking cigarettes per day: 20.0 Years smoked: 36 Smoking pack-years: 36.00 Smoking status: Former smoker Tobacco type: cigarettes Second hand tobacco smoke exposure: No Smoking end date: 06/24/20 Alcohol intake: never Substance use: never Substance use type: does not use Living arrangements: with family Additional living arrangements comments: lives with daughter Occupation/Education: occupation Gender identity (if verbalized by the patient): Female Sexual Orientation (if Verbalized by the Patient): Straight or Heterosexual Spiritual care concerns: No Exam Narrative: GENERAL: Well appearing, obese with BMI of 35.2, non-toxic, in no acute distress. HEAD: Normocephalic, atraumatic. ENT: Mucous membranes moist. Minimal posterior pharynx erythema. No tonsillar hypertrophy or exudate. No significant nasal drainage. NECK: Supple. No adenopathy, no masses. RESPIRATORY: Airway patent, respirations nonlabored. Mild decreased lung sounds in bases bilaterally. Clear to auscultation bilaterally, no rales, rhonchi, wheezing. CARDIOVASCULAR: Regular rate and rhythm without murmurs, rubs, or gallops. Radial pulses 2+ and equal bilaterally. ABDOMINAL: Soft, nontender, nondistended, no hepatosplenomegaly. Normoactive BS. MUSCULOSKELETAL: Moves all extremities. Strength/ROM intact without gross deformities. No significant edema. No calf tenderness. SKIN: Warm, dry, normal color. No rashes. NEURO: A&O X3. Speech clear. Cranial nerves II-XII grossly intact. No ataxic movements. PSYCHI
[2023-03-02 18:54] LABS: Basophils Absolute Auto 0.1 K/mm3 (0.0-0.1); Basophils Percent Auto 0.8 % (0.2-1.2); Eosinophils Absolute Auto 0.3 K/mm3 (0-0.3); Eosinophils Percent Auto 2.7 % (0-4.4); Hematocrit 39.6 % (37.0-47.0); Hemoglobin 13.1 g/dL (12.0-15.0); Immature Granulocyte Absolute 0.02 K/mm3 (0.00-0.031); Immature Granulocyte Percent A 0.2 % (0-0.5); Lymphocytes Absolute Auto 3.73 K/mm3 (0.9-3.2); Lymphocytes Percent Auto 37.1 % (18.3-44.2); Mean Corpuscular HGB Conc 33.1 g/dl (32-36); Mean Corpuscular Hemoglobin 31.3 pg (26-34); Mean Corpuscular Volume 94.5 fl (80-100); Mean Platelet Volume 9.9 fl (7.4-10.4); Monocytes Absolute Auto 0.9 K/mm3 (0.1-0.6); Monocytes Percent Auto 9.2 % (2.6-8.5); Platelet Count Result 297 k/mm3 (150-375); Red Blood Count 4.19 M/mm3 (4.2-5.4); Red Cell Distribution Width 12.3 % (11.5-14.5); White Blood Count 10.1 K/mm3 (4.5-10.0)
[2023-03-02 19:07] VITALS: BP 147/78; PULSE 69; RESP 31
[2023-03-02 19:10] VITALS: PULSE 58
[2023-03-02 19:15] LABS: Alanine Aminotransferase 27 U/L (6-35); Albumin Level 4.7 g/dL (3.5-5.1); Alkaline Phosphatase 114 U/L (38-126); Anion Gap 10 mmol/L (8-16); Aspartate Amino Transferase 24 U/L (14-36); Bilirubin,Total 0.4 mg/dL (0.2-1.3); Blood Urea Nitrogen 18 mg/dL (7-17); Calcium 9.2 mg/dL (8.4-10.2); Carbon Dioxide 25 mmol/L (22-30); Chloride 105 mmol/L (98-107); Estimated CRCL calculation 107 ml/min; Estimated Glomerular Filt Rate > 60; Glucose 105 mg/dL (65-110); Potassium 3.8 mmol/L (3.4-5.0); Sodium 140 mmol/L (137-145)
[2023-03-02 19:27] LABS: Troponin I < 0.012 ng/mL (0.000-0.034)
[2023-03-02 20:01] VITALS: BP 127/59; PULSE 57; RESP 20; O2SAT 95
[2023-03-02] MEDS: BENZONATATE 100 MG CAPSULE 200 MG PO (21:42)
[2023-03-02] MEDS: guaiFENesin/DEXTROMETHORPHAN 10 ML UDC PO (21:45)
[2023-03-02 22:01] VITALS: BP 113/62; PULSE 60
[2023-03-02 22:04] LABS: Troponin I < 0.012 ng/mL (0.000-0.034)
== END 2023-03-02 22:58 | disposition home or self-care (01) ==
PROVIDERS: Emergency Medicine; Emergency Provider Physician Assistant; PCP Family Medicine
DX: R04.2 Hemoptysis (principal); Z86.16 Personal history of COVID-19; I25.10 Atherosclerotic heart disease of native coronary artery without angina pectoris; J45.909 Unspecified asthma, uncomplicated; E78.5 Hyperlipidemia, unspecified; I25.2 Old myocardial infarction; K21.9 Gastro-esophageal reflux disease without esophagitis; Z95.5 Presence of coronary angioplasty implant and graft; Z87.891 Personal history of nicotine dependence; K44.9 Diaphragmatic hernia without obstruction or gangrene; J43.9 Emphysema, unspecified; I49.3 Ventricular premature depolarization; I49.1 Atrial premature depolarization
CPT/HCPCS: 36415; 71275; 80053; 84484; 85025; 93005; 99284; A9270; Q9967

== ENCOUNTER 2023-04-12 08:22 | Outpatient (CLI) | payer BC, SELFPAY ==
[2023-04-12 08:47] LABS: Basophils Absolute Auto 0.1 K/mm3 (0.0-0.1); Basophils Percent Auto 1.4 % (0.2-1.2); Eosinophils Absolute Auto 0.2 K/mm3 (0-0.3); Eosinophils Percent Auto 4.2 % (0-4.4); Hematocrit 39.4 % (37.0-47.0); Hemoglobin 13.3 g/dL (12.0-15.0); Immature Granulocyte Absolute 0.01 K/mm3 (0.00-0.031); Immature Granulocyte Percent A 0.2 % (0-0.5); Lymphocytes Absolute Auto 1.97 K/mm3 (0.9-3.2); Lymphocytes Percent Auto 34.8 % (18.3-44.2); Mean Corpuscular HGB Conc 33.8 g/dl (32-36); Mean Corpuscular Hemoglobin 31.5 pg (26-34); Mean Corpuscular Volume 93.4 fl (80-100); Mean Platelet Volume 10.2 fl (7.4-10.4); Monocytes Absolute Auto 0.5 K/mm3 (0.1-0.6); Monocytes Percent Auto 8.1 % (2.6-8.5); Neutrophils Absolute Auto 2.9 K/mm3 (1.3-6.7); Neutrophils Percent Auto 51.3 % (45.5-73.1); Platelet Count Result 273 k/mm3 (150-375); Red Blood Count 4.22 M/mm3 (4.2-5.4); Red Cell Distribution Width 12.3 % (11.5-14.5); White Blood Count 5.7 K/mm3 (4.5-10.0)
[2023-04-12 09:01] LABS: Alanine Aminotransferase 29 U/L (6-35); Albumin Level 4.4 g/dL (3.5-5.1); Alkaline Phosphatase 84 U/L (38-126); Anion Gap 8 mmol/L (8-16); Aspartate Amino Transferase 24 U/L (14-36); Bilirubin,Total 0.5 mg/dL (0.2-1.3); Blood Urea Nitrogen 14 mg/dL (7-17); Calcium 8.9 mg/dL (8.4-10.2); Carbon Dioxide 25 mmol/L (22-30); Chloride 109 mmol/L (98-107); Cholesterol 153 mg/dL (0-200); Estimated Glomerular Filt Rate > 60; Glucose 117 mg/dL (65-110); HDL Direct 47 mg/dL; Potassium 4.1 mmol/L (3.4-5.0); Sodium 142 mmol/L (137-145); Triglycerides 126 mg/dL (<150)
[2023-04-12 09:12] LABS: LDL Cholesterol Direct 77 mg/dL
[2023-04-12 10:17] LABS: Hemoglobin A1C 5.5 % (<5.7)
[2023-04-12 10:55] LABS: Thyroid Stimulating Hormone Reflex 0.679 uIU/mL (0.465-4.68)
== END 2023-04-12 08:23 | disposition home or self-care (01) ==
LOC: ANHLAB 08:23
PROVIDERS: PCP Family Medicine; Visit Provider Nurse Practitioner Gerontology
DX: E78.00 Pure hypercholesterolemia, unspecified (principal); E11.9 Type 2 diabetes mellitus without complications; E78.5 Hyperlipidemia, unspecified; Z95.5 Presence of coronary angioplasty implant and graft
CPT/HCPCS: 36415; 80053; 80061; 83036; 84443; 85025

== ENCOUNTER 2023-04-27 13:35 | Emergency (ER) | payer BC, SELFPAY ==
--- NOTE | ~2023-04-27 | XR_ITS ---
EXAMINATION: XR chest 2V DATE: 04/27/2023 14:22 INDICATION: Shortness of breath TECHNIQUE: PA and lateral views of the chest are obtained. COMPARISON: 10/04/2022 FINDINGS: The lungs are free of acute opacities. No pleural effusion or pneumothorax. The cardiomedia stinal silhouette is normal. There is mild thoracic spondylosis. IMPRESSION: 1. No acute cardiopulmonary abnormality. Reviewed, dictated and finalized at location A.
[2023-04-27 13:36] VITALS: BP 165/72; PULSE 71; RESP 16; TEMP 36.6; O2SAT 100
--- NOTE | 2023-04-27 13:41 | ECG_ITS ---
Measurements Intervals [place] Rate: 78 P: 39 [place]: 170 QRS: -11 QRSD: 88 T: 52 QT: 378 QTc: 431 Interpretive Statements SINUS RHYTHM MINIMAL Q WAVES- HIGH LATERAL LEADS BORDERLINE ECG COMPARED TO ECG 03/02/2023 18:35:12 NO SIGNIFICANT CHANGES Electronically Signed On 04-27-2023 15:52:59 CDT by Derrell Nelson D.O.
[2023-04-27 14:38] LABS: Basophils Absolute Auto 0.1 K/mm3 (0.0-0.1); Eosinophils Absolute Auto 0.2 K/mm3 (0-0.3); Eosinophils Percent Auto 2.9 % (0-4.4); Hematocrit 38.7 % (37.0-47.0); Hemoglobin 12.9 g/dL (12.0-15.0); Immature Granulocyte Absolute 0.02 K/mm3 (0.00-0.031); Immature Granulocyte Percent A 0.3 % (0-0.5); Lymphocytes Absolute Auto 1.54 K/mm3 (0.9-3.2); Mean Corpuscular HGB Conc 33.3 g/dl (32-36); Mean Corpuscular Hemoglobin 31.2 pg (26-34); Mean Corpuscular Volume 93.5 fl (80-100); Mean Platelet Volume 9.7 fl (7.4-10.4); Monocytes Absolute Auto 0.5 K/mm3 (0.1-0.6); Monocytes Percent Auto 5.8 % (2.6-8.5); Neutrophils Absolute Auto 5.4 K/mm3 (1.3-6.7); Platelet Count Result 295 k/mm3 (150-375); Red Blood Count 4.14 M/mm3 (4.2-5.4); Red Cell Distribution Width 12.2 % (11.5-14.5); White Blood Count 7.7 K/mm3 (4.5-10.0)
[2023-04-27 14:48] LABS: Alanine Aminotransferase 32 U/L (6-35); Albumin Level 4.6 g/dL (3.5-5.1); Alkaline Phosphatase 103 U/L (38-126); Anion Gap 8 mmol/L (8-16); Aspartate Amino Transferase 26 U/L (14-36); Bilirubin,Total 0.3 mg/dL (0.2-1.3); Blood Urea Nitrogen 15 mg/dL (7-17); Calcium 9.5 mg/dL (8.4-10.2); Carbon Dioxide 27 mmol/L (22-30); Chloride 106 mmol/L (98-107); Estimated CRCL calculation 103 ml/min; Estimated Glomerular Filt Rate > 60; Glucose 102 mg/dL (65-110); Lipase 127 U/L (23-300); Sodium 141 mmol/L (137-145)
[2023-04-27 14:51] LABS: INR 0.9; Prothrombin Time 12.9 Seconds (11.1-14.7)
[2023-04-27 14:53] LABS: Partial Thromboplastin Time 31.2 SECONDS (22.3-36.8)
[2023-04-27 15:00] LABS: Troponin I < 0.012 ng/mL (0.000-0.034)
[2023-04-27 15:51] VITALS: BP 106/68; PULSE 54; RESP 19; O2SAT 98
[2023-04-27 16:21] LABS: Magnesium 2.1 mg/dL (1.6-2.3)
--- NOTE | 2023-04-27 17:06 | ED.ARRPALP ---
HPI - Arrhythmia/Palpitations General Chief Complaint: Arrhythmia/Palpitations Stated Complaint: palpitations Time Seen by Provider: 04/27/23 15:15 Source: patient, RN notes reviewed and old records reviewed Mode of arrival: ambulatory Limitations: no limitations History of Present Illness HPI narrative: This is a 53 year old female with history of CAD s/p PCI stent, [place], palpitations who presents for evaluation of palpitations. Patient states she has been having palpitations over the past week. She has cut out caffeine to help with her palpitations. She describes her palpitations as butterflies in her chest . She states palpitations seems to be occuring more frequently. She states when she has the palpitations it takes her breath a way. She has them more with sitting down. She denies chest pain or shortness of breath with exertion. She denies symptoms worse with exertion. She reports history of bradycardia. Related Data Allergies Allergy/AdvReac Type Severity Reaction Status Date / Time No Known Allergies Allergy Mild Verified 04/27/23 15:52 Review of Systems Constitutional: Constitutional: Denies weakness Cardiovascular: Cardiovascular: Denies syncope, Denies rapid heart rate, Denies irregular heart rhythm, Denies leg edema, Reports palpitations and Denies dyspnea Respiratory: Respiratory: Denies chest congestion, Denies hemoptysis, Denies excessive phlegm production and Denies dyspnea Gastrointestinal: Gastrointestinal: Denies abdominal pain, Denies hematochezia, Denies diarrhea and Denies vomiting Genitourinary: Genitourinary: Denies hematuria and Denies dysuria Musculoskeletal: Musculoskeletal: Denies joint swelling, Denies loss of height and Denies muscle weakness Neurologic: Denies syncope, Denies focal weakness and Denies weakness [facility] Past Medical History Medical History Asthma Diabetes mellitus GERD (gastroesophageal reflux disease) Hyperlipidemia STEMI (ST elevation myocardial infarction) Surgical History Surgical History Stented coronary artery 1 stent to LDA and 2 stents to RCA Family History Family History Mother Coronary artery disease Hypertension Cerebrovascular accident Cervical cancer Father Diabetes mellitus Coronary artery disease Congestive heart failure Hypertension Social History Social History Social History: Smoking packs per day: 1 Smoking cigarettes per day: 20.0 Years smoked: 36 Smoking pack-years: 36.00 Smoking status: Former smoker Tobacco type: cigarettes Second hand tobacco smoke exposure: No Smoking end date: 06/24/20 Alcohol intake: never Substance use: never Substance use type: does not use Living arrangements: with family Additional living arrangements comments: lives with daughter Occupation/Education: occupation Gender identity (if verbalized by the patient): Female Sexual Orientation (if Verbalized by the Patient): Straight or Heterosexual Spiritual care concerns: No Exam Const: General: no acute distress and alert Nutritional Appearance: well nourished Orientation/consciousness: patient oriented x3 Limitations: no limitations HENMT: Head: normal to inspection Face and sinus: normal facial exam Eyes: EOM: EOMs intact bilaterally Chest: Chest palpation & inspection: normal inspection of the chest Resp: Effort & Inspection: normal respiratory effort Auscultation: clear to auscultation bilaterally Cardio: Rate: regular rate Rhythm: regular rhythm Heart sounds: no murmurs GI: GI Palp: Yes Soft to palpation, No Tenderness to palpation present (GI), No Guarding due to palpation present (GI) and No Rigid due to palpation Auscultation: normal bowel sounds Skin: General skin exam:
[2023-04-27 17:59] LABS: Troponin I < 0.012 ng/mL (0.000-0.034)
[2023-04-27 18:27] VITALS: BP 122/56; PULSE 50; RESP 16; O2SAT 99
== END 2023-04-27 18:29 | disposition home or self-care (01) ==
PROVIDERS: Emergency Provider General Practice; PCP Family Medicine
DX: R00.2 Palpitations (principal); I25.10 Atherosclerotic heart disease of native coronary artery without angina pectoris; I25.2 Old myocardial infarction; J45.909 Unspecified asthma, uncomplicated; E11.9 Type 2 diabetes mellitus without complications; E78.5 Hyperlipidemia, unspecified; K21.9 Gastro-esophageal reflux disease without esophagitis; Z95.5 Presence of coronary angioplasty implant and graft; Z87.891 Personal history of nicotine dependence; Z79.85 Long-term (current) use of injectable non-insulin antidiabetic drugs; Z79.82 Long term (current) use of aspirin
CPT/HCPCS: 36415; 71046; 80053; 83690; 83735; 84484; 85025; 85610; 85730; 93005; 99284

== ENCOUNTER → 2023-07-05 11:02 | Outpatient (CLI) | payer BC, SELFPAY ==
--- NOTE | ~2023-07-05 | MM_ITS ---
EXAMINATION: MM screening [facility] BI w wale HISTORY: Screening mammogram TECHNIQUE: Craniocaudal and mediolateral oblique 3-D tomosynthesis images were obtained and synthetic 2-D images were generated. CAD analysis was submitted and interpreted. COMPARISON: No prior mammogram is available for comparison at this institution. BREAST PARENCHYMAL COMPOSITION: The breasts are almost entirely fatty. FINDINGS: There is no evidence of suspicious mass, calcification, or architectural distortion to sugg est malignancy in either breast. There has been no suspicious interval change. IMPRESSION: 1. No mammographic evidence of malignancy. 2. Recommend routine screening mammography in one year. BI-RADS Category 1: Negative Reviewed, dictated and finalized at location A.
== END ==
PROVIDERS: PCP Family Medicine; Visit Provider Nurse Practitioner Gerontology
DX: Z12.31 Encounter for screening mammogram for malignant neoplasm of breast (principal)
CPT/HCPCS: 77063; 77067

== ENCOUNTER 2023-12-09 10:05 | Outpatient (CLI) | payer BC, SELFPAY ==
[2023-12-09 11:21] LABS: Alanine Aminotransferase 27 U/L (6-35); Albumin Level 4.1 g/dL (3.5-5.1); Alkaline Phosphatase 109 U/L (38-126); Anion Gap 7 mmol/L (8-16); Aspartate Amino Transferase 29 U/L (14-36); Basophils Absolute Auto 0.1 K/mm3 (0.0-0.1); Basophils Percent Auto 1.3 % (0.2-1.2); Bilirubin,Total 0.5 mg/dL (0.2-1.3); Blood Urea Nitrogen 19 mg/dL (7-17); Calcium 9.3 mg/dL (8.4-10.2); Carbon Dioxide 24 mmol/L (22-30); Chloride 106 mmol/L (98-107); Cholesterol 136 mg/dL (0-200); Eosinophils Absolute Auto 0.2 K/mm3 (0-0.3); Eosinophils Percent Auto 3.8 % (0-4.4); Estimated Glomerular Filt Rate > 60; Glucose 108 mg/dL (65-110); HDL Direct 48 mg/dL; Hematocrit 39.7 % (37.0-47.0); Hemoglobin 13.1 g/dL (12.0-15.0); Hemoglobin A1C 5.8 % (<5.7); Immature Granulocyte Absolute 0.01 K/mm3 (0.00-0.031); Immature Granulocyte Percent A 0.2 % (0-0.5); Lymphocytes Percent Auto 36.6 % (18.3-44.2); Mean Corpuscular Volume 94.1 fl (80-100); Mean Platelet Volume 10.2 fl (7.4-10.4); Monocytes Absolute Auto 0.5 K/mm3 (0.1-0.6); Monocytes Percent Auto 7.5 % (2.6-8.5); Neutrophils Absolute Auto 3.2 K/mm3 (1.3-6.7); Neutrophils Percent Auto 50.6 % (45.5-73.1); Platelet Count Result 301 k/mm3 (150-375); Potassium 4.3 mmol/L (3.4-5.0); Red Blood Count 4.22 M/mm3 (4.2-5.4); Red Cell Distribution Width 12.3 % (11.5-14.5); Sodium 137 mmol/L (137-145); Triglycerides 99 mg/dL (<150); White Blood Count 6.3 K/mm3 (4.5-10.0)
[2023-12-09 11:32] LABS: LDL Cholesterol Direct 69 mg/dL
== END 2023-12-09 10:06 | disposition home or self-care (01) ==
LOC: ANHLAB 10:07
PROVIDERS: PCP Family Medicine; Visit Provider Physician Assistant
DX: R73.03 Prediabetes (principal); E78.00 Pure hypercholesterolemia, unspecified
CPT/HCPCS: 36415; 80053; 80061; 83036; 85025

== ENCOUNTER 2024-03-25 08:39 | Outpatient (CLI) | payer BC, SELFPAY ==
[2024-03-25 09:58] LABS: Alanine Aminotransferase 26 U/L (6-35); Albumin Level 4.5 g/dL (3.5-5.1); Alkaline Phosphatase 86 U/L (38-126); Anion Gap 8 mmol/L (4-12); Aspartate Amino Transferase 23 U/L (14-36); Bilirubin,Total 0.5 mg/dL (0.2-1.3); Blood Urea Nitrogen 15 mg/dL (7-17); Calcium 9.4 mg/dL (8.4-10.2); Carbon Dioxide 26 mmol/L (22-30); Chloride 108 mmol/L (98-107); Estimated Glomerular Filt Rate > 60; Glucose 106 mg/dL (65-110); Potassium 4.1 mmol/L (3.4-5.0); Sodium 142 mmol/L (137-145)
[2024-03-25 10:00] LABS: Hemoglobin A1C 5.2 % (<5.7)
== END 2024-03-25 08:40 | disposition home or self-care (01) ==
PROVIDERS: PCP Family Medicine; Visit Provider Physician Assistant
DX: E11.9 Type 2 diabetes mellitus without complications (principal)
CPT/HCPCS: 36415; 80053; 83036

== ENCOUNTER 2024-11-23 08:44 | Outpatient (CLI) | payer BC, SELFPAY ==
--- OUTSIDE RECORDS SUMMARY | 2024-11-23 09:06 | XMS_ITS | Clinical Summary ---
Author Organization [facility] [employer] Address [address] [place] [address] Care Team Providers Care Track Repair Supervisor Name Role Phone Unavailable Primary Care Provider Unavailabl e Source Comments [facility] [employer],non-owned Affiliates and Associated Physician Practices is amultiple site organization consisting of ambulatory clinics and hospital sitesin [place], [place], [place] and [place]. This disclosure is being madepursuant to the Care Everywhere program and may not contain all information available regarding this patient. Last updated 18.[facility] [employer] Allergies No known active allergies Medications Be aware that medications may not be up to date on this document. Always verify current medications with the patient. No known medications Social History Tobacco Use Types Packs/Day Years Used Date Smoking Tobacco: Every Day Smokeless Tobacco: Never Sex and Gender Information Value Date Recorded Sex Assigned at Not on file Gender Identity Not on file Sexual Orientation Not on file Last Filed Vital Signs Vital Sign Reading Time Taken Comments Blood Pressure 128/84 03/29/2018 2:10 PM CDT Lower arm, Left. Pulse 64 03/29/2018 2:10 PM CDT Temperature 36.8 ??C (98.3 ??F) 03/29/2018 2 :10 PM CDT Respiratory Rate 16 03/29/2018 2:10 PM CDT Oxygen Saturation 96% 03/29/2018 2:1 0 PM CDT Inhaled Oxygen Concentration - - Weight 113.4 kg (250 lb) 03/29/2018 2:1 0 PM CDT Height 175.3 cm (5' 9 ) 03/29/2018 2:10 PM CDT Body Mass Index 36.92 03/29/2018 2:10 PM CDT Plan of Treatment Health Maintenance Due Date Last Done Comments SUZAN (AGES 45-75) - COL ON CA SCREENING 1968 COLON MONITORING 1968 COLONOSCOPY - COLON CA SCREENING 1968 CT COLONOGRAPHY - COLON CA SCREENING 1968 Colorectal Cancer Screening 1968 FIT - COLON CA SCREENING 1968 FLEX SIG - COLON CA SCREENING 1968 LIPID TESTING 1968 MAMMOGRAM 1968 PAP SMEAR 1968 HIV SCREENING 1983 HEPATITIS C SCREENING 04/01/1986 DTAP/TDAP/TD VACCINES (1 - Tdap) 1987 HEPATITIS B VACCINE (1 of 3 - 19+ 3-dose series) 1987 PNEUMOCOCCAL VACCINE 50+ (1 of 2 - PCV) 1987 PNEUMOCOCCAL VACCINE (1 of 2 - PCV) 1987 SCREENING FOR DIABETES 03/29/2018 ZOSTER VACCINE (1 of 2) 2018 COVID-19 VACCINE ( - 2023-2 5 season) 2024 INFLUENZA VACCINE (#1) 2024 DEPRESSION SCREENING 10/28/2024 HIB VACCINE Aged Out No longer eligi ble based on patient's age to complete this topic HPV VACCINE Aged Out No longer eligi ble based on patient's age to complete this topic MENINGOCOCCAL (Group B) VACCINE Aged Out No longer eligible based on patient's age to complete this topic MENINGOCOCCAL VACCINE Aged Out No lucía zoey eligible based on patient's age to complete this topic
--- OUTSIDE RECORDS SUMMARY | 2024-11-23 09:06 | XMS_ITS | Patient Health Summary ---
Author Organization [facility] [employer] Address [address] [place] [address] Care Team Providers Care Apron Man Name Role Phone Unavailable Primary Care Provider Unavailabl e Note from [facility],non-owned Affiliates and Associated Physician Practices is amultiple site organization consisting of ambulatory clinics and hospital sitesin [place], [place], [place] and [place]. This disclosure is being madepursuant to the Care Everywhere program and may not contain all information available regarding this patient. Last updated 18.[facility] [employer] Allergies No known active allergies Medications Be [...]
--- OUTSIDE RECORDS SUMMARY | 2024-11-23 09:06 | XMS_ITS | Referral Summary ---
Author Organization [facility] [employer] Address [address] [place] [place] [address] Care Team Providers Care Lockstitch Coat Joiner Name Role Phone Unavailable Primary Care Provider Unavailabl e Source Comments [facility] [employer],non-owned Affiliates and Associated Physician Practices is amultiple site organization consisting of ambulatory clinics and hospital sitesin [place], [place], [place] and [place]. This disclosure is being madepursuant to the Care Everywhere program and may not contain all information available regarding this patient. Last updated 18.[facility] [employer] Allergies No known active allergies Medications Be [...] 03/29/2018 2:10 PM CDT Plan of Treatment Not on file [facility] [place] [id number] Maggy Ojeda Personal/Family Self 1970 [facility] [place] [address]
--- OUTSIDE RECORDS SUMMARY | 2024-11-23 09:06 | XMS_ITS | Clinical Summary ---
Author Organization [facility] Address [address] [place] [address] Care Team Providers Care Conditioning Room Worker Name Role Phone Elsa Triana MD Primary Care Provider Allergies No known active allergies Medications aspirin 81 mg chewable tablet Take 1 tablet (81 mg total) by mouth daily 0 Active acetaminophen (TYLENOL) 325 mg tablet Take 2 tablets (650 mg total) by mouth every 6 (six) hours as needed for pain Active nitroglycerin (NITROSTAT) 0.[address] 1 tablet (0.4 mg total) under the tongue every 5 (five) minutes as needed for chest pain (up to 3 doses) Active omeprazole (PriLOSEC) 20 mg capsule Take 1 capsule (20 mg total) by mouth daily 1 Active atorvastatin (LIPITOR) 40 mg tablet TAKE 1 TABLET(40 MG) BY MOUTH DAILY 90 tablet 1 2 Active albuterol HFA (PROVENTIL HFA,VENTOLIN HFA,PROAIR HFA) 90 mcg/actuation inhaler 2 INHALES 4 TIMES DAILY NEEDED FOR SHORTNESS OF BREATH OR WHEEZING 3 Active Zepbound 5 mg/0.5 mL pen injector ADMINISTER 5 MG UNDER THE SKIN WEEKLY 4 Active ticagrelor (Brilinta) 60 mg tabletIndicatio ns:Coronary artery disease involving mash[place] coronary artery of mash[place] heart without angina pectoris TAKE 1 TABLET BY MOUTH TWICE DAILY 180 tablet 3 4 Active Active Problems Problem Noted Date Diagnosed Date Atypical chest pain 04/29/2024 Morbid (severe) obesity due to excess calories 0 05/06/2023 Palpitations 03/13/2021 Sinus bradycardia 03/13/2021 Presence of stent in coronary artery 11/18/2020 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 09/19/2020 Hypertension associated with diabetes 09/19/2020 Mixed hyperlipidemia 09/19/2020 Impacted cerumen, bilateral 06/01/2020 Conductive hearing loss, bilateral 06/01/2020 Morbid obesity with BMI of 40.0-44.9, adult 10/2017 Immunizations Name Administration Dates Next Due Pfizer SARS-CoV-2 Monovalent Vaccination (12+ Yrs) PURPLE 11/15/2020,10/25/2020 Surgical History Surgery Date Site/Laterality Comments KNEE SURGERY SECTION CORONARY ANGIOPLASTY WITH ST ENT PLACEMENT 06/24/2020 Mid LAD CORONARY ANGIOPLASTY WITH ST ENT PLACEMENT 06/29/2020 Mid RCA and distal RCA CARDIAC CATHETERIZATION 06/24/2020 and 06/29/2020 Medical History Medical History Date Comments Asthma Gastric reflux Allergic rhinitis Hypertension Diabetes mellitus (HCC) Hyperlipidemia Chest pain Coronary artery disease STEMI involving left anterior descending coronar y artery (HCC) 06/24/2020 Arthritis Knees Ear problems Family History Medical History Relation Name Comments Diabetes Father Heart attack Father Hyperlipidemia Father Hypertension Father Cancer Mother Stroke Mother Relation Name Status Comments Father Mother Social History Tobacco Use Types Packs/Day Years Used Date Smoking Tobacco: Former Cigarettes Q uit: 06/24/2020 Smokeless Tobacco: Current Tobacco Cessation:Ready to Q uit: Not Asked; Counseling Given: Not Answered Alcohol Use Standard Drinks/Week Comments Yes 0 (1 standard drink = 0.6 oz pur e alcohol) Personal Safety Answer Date Recorded Getting School Help Needed Not on file 10/28 Comments Unknown Sex and Gender Information Value Date Recorded Sex Assigned at Not on file 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 Gender Identity Not on file Sexual Orientation Not on file Obstetrics History Last Filed Vital Signs Vital Sign Reading Time Taken Comments Blood Pressure 110/80 05/11/2024 8:52 AM CDT Pulse 65 05/11/2024 8:52 AM CDT Temperature 36.8 ??C (98.3 ??F) 06/01/2020 1 2:57 PM CDT Respiratory Rate 20 06/04/2024 1:01 PM CDT Oxygen Saturation 98% 05/11/2024 8:52 AM CDT Inhaled Oxygen Concentration - - Weight 105.2 kg (231 lb 14.8 oz) 06/04/2024 1:01 PM CDT Height 177.8 cm (5' 10 ) 06/04/2024 1:01 PM CDT Body Mass Index 33.28 06/04/2024 1:01 PM CDT Plan of Treatment Health Maintenance Due Date Last Done Comments Albumin Creatinine Ratio, Urine 1968 Breast Cancer Screening-Mammogram 1968 Cervical Cancer Screening 1968 Colon Cancer Screening-Colonoscopy 1968 Depression Screening 1968 Hemoglobin A1C 1968 Hepatitis C Screening 1968 Dilated Eye Exam 1968 Foot Exam 1968 Pneumococcal vaccine <65 (1 of 2 - PCV) 1974 DTaP/Tdap/Td Vaccine (1 - Tdap) 1979 Hepatitis B Screening 1986 Regular Well Visit/Exam 18-64 1986 Zoster Vaccine (1 of 2) 2018 eGFR 01/19/2023 01/19/2022 Covid-19 Vaccine (3 - 2023-2 5 season) 2024 11/15/2020, 10/25/2020 Influenza Vaccine (#1) 2024 Lipid Panel 05/11/2025 05/11/2024, 04/27, 01/01/2022, Additional history exists Procedures Procedure Name Priority Date/Time Associated Diagnosis Comments POCT LIPID PANEL Routine 05/11/2024 9:10 AM CDT Mixed hyperlipidemia BASIC METABOLIC PANEL Routine 01/19/2022 Coronary artery disease involving mashpee coronary artery of mashpee heart without angina pectoris History of ST elevation myocardial infarction (STEMI) Elevated brain natriuretic peptide (BNP) level from Last 3 Months or Most Recently Relevant to Health Maintenance Results * POCT lipid panel (05/11/2024 9:10 AM CDT) Cholesterol, POC 126 mg/dL Comment:GLU = 101 HDL, POC 43 mg/dL Triglycerides, POC 195 mg/dL LDL Cholesterol POC 43 mg/dL Chol/HDL Ratio, POC 1.0 Non-HDL Cholesterol, POC 82 mg/dL Cholesterol Total, POC 126 mg/dL Capillary blood 05/11/2024 9 :10 AM CDT Perry Shipley MD POINT OF CARE TEST O RDERABLES Final Result * (ABNORMAL) Basic metabolic panel (01/19/2022) SCRIBED Sodium 138 137 - 145 mmol/L EXTERNAL LAB SCRIBED Potassium 4.3 3.4 - 5.0 mmol/L EXTERNAL LAB SCRIBED Chloride 103 98 - 107 mmol/L EXTERNAL LAB SCRIBED Carbon Dioxide 28 22 - 30 mmol/L EXTERNAL LAB SCRIBED Anion Gap 7(A) 8 - 16 mmol/L EXTERNAL LAB SCRIBED Urea Nitrogen (BUN) 20(A) 7 - 17 mg/dl EXTERNAL LAB SCRIBED Creatinine 0.80 0.7 - 1.0 mg/dl EXTERNAL LAB SCRIBED Glucose 101 65 - 110 mg/dl EXTERNAL LAB SCRIBED Calcium 9.0 8.4 - 10.2 mg/dl EXTERNAL LAB SCRIBED eGFR in N/A N/A - N/A EXTERNAL LAB SCRIBED eGFR in NonAfrican Swazi >60 > or = 60 EXTERNAL LAB Blood specimen (specimen) 01/19/2022 Perry Shipley MD LAB BLOOD ORDERABLES Final Result EXTERNAL LAB from Last 3 Months or Most Recently Relevant to Health Maintenance Insurance [employer] O[employer] Address: [address] [place] [address] [employer] Address: [address] [place] [address] Care Teams Conditioning Room Worker Relationship Specialty Start Date End Date Elsa Triana MD [address] [facility] [address] [place] [address] PCP - General Family Medicine 07/18/20
--- OUTSIDE RECORDS SUMMARY | 2024-11-23 09:06 | XMS_ITS | Referral Summary ---
Author Organization 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 09/19/2020 Hypertension associated with diabetes 09/19/2020 Mixed hyperlipidemia 09/19/2020 Impacted cerumen, bilateral 06/01/2020 Conductive hearing loss, bilateral 06/01/2020 Morbid obesity with BMI of 40.0-44.9, adult 10/2017 Immunizations Name Administration Dates Next Due Pfizer SARS-CoV-2 Monovalent Vaccination (12+ Yrs) PURPLE 11/15/2020,10/25/2020 Social History Tobacco Use Types Packs/Day Years [...] on file 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 Gender Identity Not on file Sexual Orientation [...] 06/04/2024 1:01 PM CDT Plan of Treatment Not on file Procedures Procedure Name Priority Date/Time Associated Diagnosis Comments POCT LIPID PANEL Routine 05/11/2024 9:10 AM CDT Mixed hyperlipidemia BASIC METABOLIC PANEL Routine 01/19/2022 Coronary artery disease involving mic[place] coronary artery of [place] heart without angina pectoris History of ST [...] Capillary blood 05/11/2024 9 :10 AM CDT us Perry Shipley MD POINT OF CARE TEST [...] N/A EXTERNAL LAB SCRIBED eGFR in NonAfrican French >60 > or = 60 EXTERNAL LAB Blood specimen (specimen) 01/19/2022 us Perry Shipley MD LAB BLOOD ORDERABLES Final Result EXTERNAL LAB from Last 3 Months or Most Recently Relevant to Health Maintenance Insurance [employer] ACCESS OOS [facility] OOS [employer] Care Teams Tobacco Prizer Relationship Specialty Start Date End Date Elsa Triana MD [address] [facility] [address] [place] [address] PCP - General Family Medicine 07/18/20
--- OUTSIDE RECORDS SUMMARY | 2024-11-23 09:06 | XMS_ITS | Clinical Summary ---
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 Gender Identity Not on file Sexual Orientation Not on file Plan of Treatment Health Maintenance Due Date Last Done Comments Hepatitis C Virus (HCV) Screening 1968 TdaP Immunization 1968 Hepatitis B Immunization (1 of 3 - 19+ 3-dose series) 1987 Pap Smear 1989 Cervical Cancer Screening (CCS) 1998 HPV/Cotest 1998 Colonoscopy 2013 Colorectal Cancer Screening 2013 Cologuard 2018 Immunochemical Fecal Occult Blood 2018 Mammogram 2018 Pneumococcal Immunization (5 0+ years) (1 of 1 - PCV) 2018 Zoster Immunization (1 of 2) 2018 Influenza Immunization (#1) 2024 SARS-COV-2 Immunization ( - 2023- season) 2024 11/15/2020, 10/25/2020 Respiratory Syncytial Virus (RSV) Immunization (Adult) (1 - 1-dose 75+ series) 2043 Meningococcal Immunization (ACWY) Aged Out No longer eligible b ased on patient's age to complete this topic Pneumococcal Immunization Combined Aged Out No longer eligible b ased on patient's age to complete this topic Rotavirus Immunization Aged Out No lo nger eligible based on patient's age to complete this topic
[2024-11-23 09:07] LABS: Basophils Absolute Auto 0.1 K/mm3 (0.0-0.1); Basophils Percent Auto 1.1 % (0.2-1.2); Eosinophils Absolute Auto 0.2 K/mm3 (0-0.3); Eosinophils Percent Auto 3.8 % (0-4.4); Hematocrit 38.8 % (37.0-47.0); Hemoglobin 13.1 g/dL (12.0-15.0); Immature Granulocyte Absolute 0.01 K/mm3 (0.00-0.031); Immature Granulocyte Percent A 0.2 % (0-0.5); Lymphocytes Absolute Auto 2.08 K/mm3 (0.9-3.2); Mean Corpuscular HGB Conc 33.8 g/dl (32-36); Mean Corpuscular Hemoglobin 31.4 pg (26-34); Mean Platelet Volume 9.9 fl (7.4-10.4); Monocytes Absolute Auto 0.5 K/mm3 (0.1-0.6); Monocytes Percent Auto 9.4 % (2.6-8.5); Neutrophils Absolute Auto 2.5 K/mm3 (1.3-6.7); Neutrophils Percent Auto 46.5 % (45.5-73.1); Platelet Count Result 247 k/mm3 (150-375); Red Blood Count 4.17 M/mm3 (4.2-5.4); Red Cell Distribution Width 11.9 % (11.5-14.5); White Blood Count 5.3 K/mm3 (4.5-10.0)
[2024-11-23 09:21] LABS: Alanine Aminotransferase 27 U/L (6-35); Alkaline Phosphatase 79 U/L (38-126); Anion Gap 10 mmol/L (4-12); Aspartate Amino Transferase 24 U/L (14-36); Bilirubin,Total 0.5 mg/dL (0.2-1.3); Blood Urea Nitrogen 14 mg/dL (7-17); Calcium 9.2 mg/dL (8.4-10.2); Carbon Dioxide 26 mmol/L (22-30); Chloride 105 mmol/L (98-107); Cholesterol 126 mg/dL (0-200); Estimated Glomerular Filt Rate > 60; Glucose 84 mg/dL (65-110); HDL Direct 51 mg/dL; Potassium 3.9 mmol/L (3.4-5.0); Sodium 141 mmol/L (137-145); Triglycerides 71 mg/dL (<150)
[2024-11-23 09:32] LABS: LDL Cholesterol Direct 56 mg/dL
[2024-11-23 11:10] LABS: Hemoglobin A1C 5.2 % (<5.7)
== END 2024-11-23 08:45 | disposition home or self-care (01) ==
LOC: ANHLAB 08:45
PROVIDERS: PCP Family Medicine; Visit Provider Physician Assistant
DX: I25.10 Atherosclerotic heart disease of native coronary artery without angina pectoris (principal); E78.5 Hyperlipidemia, unspecified; E11.9 Type 2 diabetes mellitus without complications
CPT/HCPCS: 36415; 80053; 80061; 83036; 85025

== ENCOUNTER 2025-08-23 11:45 | Outpatient (CLI) | payer BC, SELFPAY ==
--- NOTE | ~2025-08-23 | MM_ITS ---
EXAMINATION: MM screening [facility] BI w wale HISTORY: Screening TECHNIQUE: Craniocaudal and mediolateral oblique 3-D tomosynthesis images were obtained and synthetic 2-D images were generated. CAD analysis was submitted and interpreted. COMPARISON: 07/05/2020 BREAST PARENCHYMAL COMPOSITION: Not Dense: The breasts are almost entirely fatty. FINDINGS: There is no evidence of suspicious mass, calcification, or architectural distortion to suggest malignancy in either breast. There has been no suspicious interval change. IMPRESSION: 1. No mammographic evidence of malignancy. 2. Recommend routine screening mammography in one year. BI-RADS Category 1: Negative Reviewed, dictated and finalized at location B.
== END 2025-08-23 11:46 | disposition home or self-care (01) ==
LOC: MICIMG 11:46
PROVIDERS: PCP Obstetrics & Gynecology; Visit Provider Obstetrics & Gynecology
DX: Z12.31 Encounter for screening mammogram for malignant neoplasm of breast (principal)
CPT/HCPCS: 77063; 77067